=== PATIENT | female | born 1955 | race Caucasian/White ===

== ENCOUNTER → 2017-07-15 | Outpatient (CLI) | payer BC ==
[~2017-07-15] MED LIST: ATV5 PO; CEPH500C PO; DRV100 PO; FLUO10CA48 PO; ZNTT/150 PO
== END | disposition home or self-care (01) ==
LOC: C.PAPS 13:56
PROVIDERS: ATTEND Obstetrics & Gynecology
DX: Z01.419 Encounter for gynecological examination (general) (routine) without abnormal findings (principal)

== ENCOUNTER 2023-09-28 06:42 | Observation (INO) ==
--- NOTE | 2023-08-25 11:23 | PAT Medication Instructions ---
Medication Instructions Date of Service August 25, 2023 Home Medications atorvastatin 20 mg tablet 20 mg PO QAM empagliflozin 25 mg-linagliptin 5 mg tablet (Glyxambi) 1 tab PO QAM pantoprazole 20 mg tablet,delayed release 20 mg PO QAM fluoxetine 10 mg tablet 10 mg PO 4XWK fluoxetine 20 mg tablet 20 mg PO UD acetaminophen 500 mg tablet (Acetaminophen Extra Strength) 500 mg PO Q6H PRN Pain cholecalciferol (vitamin D3) 50 mcg (2,000 unit) capsule (Vitamin D3) 100 mcg PO QAM nystatin 100,000 unit/gram topical ointment 1 applic topical BID PRN ud pioglitazone 15 mg tablet 15 mg PO QAM triamcinolone acetonide 0.1 % topical ointment 1 applic topical BID PRN ud MEDICATION INSTRUCTIONS: Continue as directed triamcinolone acetonide 0.1 % topical ointment 1 applic topical BID PRN ud (do not use after bathing prior to surgery) nystatin 100,000 unit/gram topical ointment 1 applic topical BID PRN ud (do not use after bathing prior to surgery) DO NOT take the morning of surgery cholecalciferol (vitamin D3) 50 mcg (2,000 unit) capsule (Vitamin D3) 100 mcg PO QAM pioglitazone 15 mg tablet 15 mg PO QAM Take morning of surgery With a small sip of water, OTHERWISE NOTHING TO EAT OR DRINK AFTER MIDNIGHT: pantoprazole 20 mg tablet,delayed release 20 mg PO QAM atorvastatin 20 mg tablet 20 mg PO QAM fluoxetine 10 mg tablet 10 mg PO 4XWK fluoxetine 20 mg tablet 20 mg PO UD acetaminophen 500 mg tablet (Acetaminophen Extra Strength) 500 mg PO Q6H PRN Pain (if needed) Take evening before surgery acetaminophen 500 mg tablet (Acetaminophen Extra Strength) 500 mg PO Q6H PRN Pain Other Notes STOP 3 DAYS PRIOR TO SURGERY: empagliflozin 25 mg-linagliptin 5 mg tablet (Glyxambi) 1 tab PO QAM If you have any questions please call us at [phone] or [phone] or [phone] or [phone]
--- NOTE | 2023-09-02 12:38 | Anesthesiology Consultation ---
Date of Service September 02, 2023 Assessment & Plan (1) Encounter for pre-operative examination: - Check BSG AM DOS - Infectious disease screening: Per assessment on 09/02/23: No known infectious disease contacts or current infectious disease symptoms. No noted recent Covid positive test result. - Anesthesia concern: Reviewed neuraxial vs GA with patient. Patient reports post-op headache + Severe PONV after left nephrectomy (2006, [place]). Patient thought that this surgery might have been done with neuraxial anesthesia. Per review of Dr. Ross's operative report from 2006 left nephrectomy at [facility], surgery was done under general anesthesia. Patient states that she did not have similar issues with subsequent shoulder surgery. But did have issue of post-op dyspnea when recovering at home after shoulder surgery that resolved quickly with use of CPAP. - Outpatient joint assessment: Pt currently scheduled for inpatient pathway. If surgeon requests review for outpatient joint pathway, patient is medically acceptable candidate for outpatient joint program from anesthesia standpoint pending surgeon's office assessment that patient is motivated, has good support and completes [facility] Day Joint Program preop requirements. - Patient acceptable risk for surgery pending surgeon-ordered PCP preop evaluation (Dr. Castelan/Lindsay, appt 09/04). Chart Review Chart Review: Patient seen in Pre Admission Testing Teaching & Discussion Pre-Anesthesia Teaching/Discussion Notes: Instructed NPO after midnight before surgery,except medications with 15 cc of water. Medication instructions provided according to the PAT guidelines. History Surgery Operation Date: 09/28/23 11:20 Proposed Procedures p Right Total Knee Arthroplasty - Mak Keith MD Height/Weight Height: 5 ft 3 in Weight: 87.5 kg Allergies Allergy/AdvReac Type Severity Reaction Status Date / Time naproxen Allergy Intermediate Hives Verified 08/25/23 10:37 codeine AdvReac Mild N/V Verified 08/25/23 10:37 ketorolac [From Toradol] AdvReac Nausea Verified 09/02/23 13:06 Medications Home Medications Medication Instructions Recorded Confirmed Last Taken atorvastatin 20 mg tablet 20 mg PO QAM 06/08/22 08/25/23 06/12/22 empagliflozin 25 mg-linagliptin 5 1 tab PO QAM 06/08/22 08/25/23 06/12/22 mg tablet (Glyxambi) pantoprazole 20 mg tablet,delayed 20 mg PO QAM 06/08/22 08/25/23 06/12/22 release fluoxetine 10 mg tablet 10 mg PO 4XWK 08/06/22 08/25/23 Unknown fluoxetine 20 mg tablet 20 mg PO UD 08/06/22 08/25/23 Unknown acetaminophen 500 mg tablet 500 mg PO Q6H PRN Pain 04/11/23 08/25/23 Unknown (Acetaminophen Extra Strength) cholecalciferol (vitamin D3) 50 100 mcg PO QAM 04/11/23 08/25/23 Unknown mcg (2,000 unit) capsule (Vitamin D3) nystatin 100,000 unit/gram topical 1 applic topical BID PRN ud 08/25/23 08/25/23 Unknown ointment pioglitazone 15 mg tablet 15 mg PO QAM 08/25/23 08/25/23 Unknown triamcinolone acetonide 0.1 % 1 applic topical BID PRN ud 08/25/23 08/25/23 Unknown topical ointment Past Medical History Medical History Acid reflux Anxiety Chronic kidney disease Stage 3 Diabetes mellitus, type 2 Hiatal hernia High cholesterol History of malignant neoplasm of kidney s/p left nephrectomy (2006), no chemo/XRT Osteoarthritis Sleep apnea CPAP (compliant) Exercise / Class Metabolic Activity II 4-5 Yardwork/Stairs/Walk up hill (one FS: no CP, no SOB) Past Family History Family History Mother Colorectal cancer Father Family history of stomach cancer Family history of diabetes mellitus Grandmother (Paternal) Family history of diabetes mellitus Denies family history of Ovarian cancer Prostate cancer Breast cancer Past Surgical History Surgical History H/O rotator cuff surgery Right History of appendectomy History of carpal tunnel release of both wrists History of section, low transverse History of colonoscopy History of esophagogastroduodenoscopy (EGD) History of left cataract surgery History of nephrectomy Left (2006) History of right cataract surgery History of tonsillectomy History of tooth extraction History of tubal ligation Hx of colposcopy with cervical biopsy Hx of laparoscopy (diagnostic) Gynecologic with biopsy Nausea and vomiting after administration of anesthetic agent Past Anesthesia History No Family Hx of Anesthesia Complications * Post-op headache + Severe PONV after left nephrectomy (2006, [place])- patient t hought that this surgery might have been done with neuraxial anesthesia. Per review of Dr. Ross's operative report from 2006 left nephrectomy at [facility], surgery was done under general anesthesia * Dyspnea after Right RCR while recovering at home- quickly resolved after use of CPAP History of PONV No Hx of Motion Sickness and History of PONV (Severe with 2007 left nephrectomy- no issues with subsequent surgery/anesthesia (Right shoulder RCR)) Social History Smoking Status: Former smoker tobacco type: cigarettes Do You Dip or Chew Tobacco: No Smoking End Date: Quit 5 years ago Hx Alcohol Use: No Hx Substance Use: No substance use type: does not use Review of Systems Patient denies chest pain, shortness of breath, dyspnea on exertion, fever, chills, cough, wheezing, palpitations. Physical Exam Vital Signs BP 116/72 P 69 TEMP 97.8 SP02 95%RA RESP 16 Physical Full cervical extension range of motion. Full TMJ range of motion. TMD 3 finger breaths Mallampati Score 3 Dentition: upper full denture Lungs: clear throughout to auscultation Cardiac: regular rate and rhythm, no murmurs noted Spine: normal Carotid arteries: negative bruit Extremities: no LE edema Lab Results Anesthesia Preop Results Results Anesthesia Widget: WBC 7.72 K/ul (4.8-10.8) 09/02/23 Hgb 13.7 g/dl (12.0-16.0) 09/02/23 Hct 41.9 % (37.0-47.0) 09/02/23 Plt 180 K/uL (130-400) 09/02/23 Na 137 mmol/L (136-145) 09/02/23 K 3.8 mmol/L (3.5-5.1) 09/02/23 Cl 99 mmol/L (98-107) 09/02/23 CO2 30 mmol/L (21-32) 09/02/23 BUN 15 mg/dl (6-23) 09/02/23 Creat 0.99 mg/dl (0.6-1.2) 09/02/23 Glucose Level 161 mg/dl (70-99(Fasting)) H 09/02/23 PT 11.2 Seconds (9.0-12.0) 09/02/23 PTT 29 Seconds (21-31) 09/02/23 INR 1.0 (0.9-1.1) 09/02/23 HA1c 6.1 % (4.5-5.6) H 09/02/23 Urine Color Yellow 09/02/23 Urine Appearance Clear (Clear) 09/02/23 Urine pH 5.5 (4.5-7.5) 09/02/23 Urine Specific [place] 1.028 (1.000-1.030) 09/02/23 Urine Protein Negative (Negative) 09/02/23 Urine Glucose (UA) 3+ (Negative) H 09/02/23 Urine Ketones Negative (Negative) 09/02/23 Urine Blood Negative (Negative) 09/02/23 Urine Nitrite Negative (Negative) 09/02/23 Urine Bilirubin Negative (Negative) 09/02/23 Urine Urobilinogen Negative (Negative) 09/02/23 Urine Leukocyte Esterase Negative (Negative) 09/02/23 Blood Type O Positive 09/02/23 Antibody Screen NEGATIVE 09/02/23 Testing Electrocardiogram Date: 04/14/23 SR at 63bpm. "Normal ECG" Chest X-Ray Date: 03/27/23 Findings: + NAD
--- NOTE | 2023-09-18 18:54 | History & Physical Report ---
Date of Service September 18, 2023 Assessment & Plan (1) Primary osteoarthritis of right knee: Plan: Treatment options discussed with the patient. They wish to proceed with surgery. Risks, benefits and alternatives to surgery including but not limited to infection, DVT, pain, stiffness, need for revision surgery, damage to blood vessels, damage to nerves, PE, , were discussed with the patient and they wish to proceed. Plan for right total knee arthroplasty scheduled for September [address] Keith. Plan on home health therapy postop. Plan on aspirin 81 mg twice daily for 1 month postop for DVT prophylaxis. All questions answered. Patient follow-up postop. History of Present Illness Chief Complaint: Right knee pain Primary Care Provider: Ezequiel Castelan 68-year-old female with past medical history significant for diabetes, sleep apnea, CKD, history of renal cancer with nephrectomy who presents with ongoing right knee pain. Pain is interfering with her daily activities. She has failed conservative measures and would like to proceed with surgery. Patient denies headaches, sweats, fevers, chills, double vision, blurred vision, cough, sore throat, dysphagia, chest pain, sob, wheezing, n/v/d/c, numbness, tingling, fatigue, urinary symptoms, mood disorders. ROS positive for right knee pain and stiffness. Allergies Allergy/AdvReac Type Severity Reaction Status Date / Time naproxen Allergy Intermediate Hives Verified 08/25/23 10:37 codeine AdvReac Mild N/V Verified 08/25/23 10:37 ketorolac [From Toradol] AdvReac Nausea Verified 09/02/23 13:06 Home Medications Medication Instructions Recorded Confirmed Type atorvastatin 20 mg tablet 20 mg PO QAM 06/08/22 08/25/23 History empagliflozin 25 mg-linagliptin 5 1 tab PO QAM 06/08/22 08/25/23 History mg tablet (Glyxambi) pantoprazole 20 mg tablet,delayed 20 mg PO QAM 06/08/22 08/25/23 History release fluoxetine 10 mg tablet 10 mg PO 4XWK 08/06/22 08/25/23 History fluoxetine 20 mg tablet 20 mg PO UD 08/06/22 08/25/23 History acetaminophen 500 mg tablet 500 mg PO Q6H PRN Pain 04/11/23 08/25/23 History (Acetaminophen Extra Strength) cholecalciferol (vitamin D3) 50 100 mcg PO QAM 04/11/23 08/25/23 History mcg (2,000 unit) capsule (Vitamin D3) nystatin 100,000 unit/gram topical 1 applic topical BID PRN ud 08/25/23 08/25/23 History ointment pioglitazone 15 mg tablet 15 mg PO QAM 08/25/23 08/25/23 History triamcinolone acetonide 0.1 % 1 applic topical BID PRN ud 08/25/23 08/25/23 History topical ointment Past Med/Surg History Medical History Acid reflux Anxiety Chronic kidney disease Stage 3 Diabetes mellitus, type 2 Hiatal hernia High cholesterol History of malignant neoplasm of kidney s/p left nephrectomy (2006), no chemo/XRT Osteoarthritis Sleep apnea CPAP (compliant) Surgical History H/O rotator cuff surgery Right History of appendectomy History of carpal tunnel release of both wrists History of section, low transverse History of colonoscopy History of esophagogastroduodenoscopy (EGD) History of left cataract surgery History of nephrectomy Left (2006) History of right cataract surgery History of tonsillectomy History of tooth extraction History of tubal ligation Hx of colposcopy with cervical biopsy Hx of laparoscopy (diagnostic) Gynecologic with biopsy Nausea and vomiting after administration of anesthetic agent Family History Mother Colorectal cancer Father Family history of stomach cancer Family history of diabetes mellitus Grandmother (Paternal) Family history of diabetes mellitus Denies family history of Ovarian cancer Prostate cancer Breast cancer Social History Smoking Status: Former smoker Tobacco Type: Cigarettes Second Hand Exposure: Yes (in the past); Do You Dip or Chew Tobacco: No; Hx Alcohol Use: No Hx Substance Use: No Preferred Language: Yemeni Communication Ability: Effective Manager Club Required: No Beliefs That Will Affect Care: None Current Living Situation: Family Current Living Situation Comment: and son Feels Safe at Home: Yes Assistive Devices: CPAP, Denture - Upper and Glasses Review of Systems All systems reviewed & are unremarkable except as noted in HPI & below Physical Exam Constitutional: well developed and well nourished; no acute distress Eyes: PERRL, conjunctivae normal, anicteric sclerae ENMT: external ear and nose normal, oropharynx normal Neck: trachea midline, no thyromegaly Respiratory: normal respiratory effort, lungs clear to auscultation Cardiovascular: RRR, no murmur, no edema Musculoskeletal: Right knee: Neutral alignment. Peripatellar tenderness. Stable to valgus varus stress test. Range of motion 0 to 125 degrees. Skin: no rashes, warm and dry Neurologic: patellar DTR's 2+ bilat, sensation intact Psychiatric: A+Ox3, euthymic affect Results & Data Diagnostic Findings Right knee radiographs demonstrate advanced osteoarthritis with [id number]-vawk in the lateral patellar compartment with slight lateral patellar translation. Calcifications extending into the right lateral retinaculum.
[~2023-09-28 06:42] MED LIST changes: -ATV5 PO; -CEPH500C PO; -DRV100 PO; -FLUO10CA48 PO; +ROPIVACAINE 0.5% 5 MG/ML 30 ML VIAL ONE; -ZNTT/150 PO
--- NOTE | 2023-09-28 07:38 | History & Physical Bridge Note ---
Date of Service September 28, 2023 History & Physical Bridge Note I have examined the patient, reviewed the History & Physical and in the interval since the performance of the History & Physical I have noted the following changes of clinical significance: no changes noted
[2023-09-28] MEDS: LR 500ML BOLUS, THEN 15ML/HR IV SCH (08:20)
[2023-09-28] MEDS ORDERED: MIDAZOLAM HCL 1 MG/ML 2ML VIAL ONE ×2 (08:29)
[2023-09-28] MEDS: ACETAMINOPHEN 500 MG TAB PO SCH ×2 (08:50→14:06)
[2023-09-28] MEDS: METOCLOPRAMIDE HCL 10 MG TABLET PO SCH (08:50)
[2023-09-28] MEDS: FAMOTIDINE 20 MG TAB PO SCH (08:51)
[2023-09-28] MEDS: GABAPENTIN 300 MG CAP PO SCH (08:51)
[2023-09-28] MEDS: LR 60ML/HR IV SCH (08:57)
[2023-09-28] MEDS ORDERED: ePHEDrine sulfate 50 MG/ML AMP IV PRN (09:33)
[2023-09-28] MEDS ORDERED: ONDANSETRON INJ 2 MG/ML 2 ML VIAL IV PRN (09:33)
[2023-09-28] MEDS ORDERED: ATROPINE SULFATE 0.1 MG/ML 10ML SYR IV PRN (09:33)
[2023-09-28] MEDS ORDERED: PROMETHAZINE HCL 6.25 MG in SODIUM CHLORIDE 0.9% 50 ML IV PRN (09:33)
[2023-09-28] MEDS ORDERED: fentaNYL citrate PF 100 MCG/2 ML VIAL IV PRN (09:33)
[2023-09-28] MEDS: TRANEXAMIC ACID 1,000 MG **IV Pre-op IV SCH (09:34)
[2023-09-28] MEDS: ceFAZolin 2000MG 2,000 MG/15 ML SYR IV SCH ×2 (10:05→17:39)
[2023-09-28] MEDS ORDERED: LIDOCAINE 2% 2 ML VIAL/AMP(20MG/ML) INFIL ONE (10:06)
[2023-09-28] MEDS ORDERED: PROPOFOL IV EMULSION 10 MG/ML 20 ML VIAL IV ONE (10:06)
[2023-09-28] MEDS: ROPIVACAINE 0.5% HCL/PF 246 MG, EPINEPHrine 30MG/30ML (OR USE) 0.5 MG in SODIUM CHLORID... INFIL SCH (10:19)
[2023-09-28] MEDS ORDERED: PHENYLEPHRINE HCL 10 MG/ML VIAL ONE (10:29)
--- NOTE | 2023-09-28 11:40 | Operative Report ---
Post Operative Report Pre & Post Diagnosis Operation Date: 09/28/23 09:10 Pre-Op Diagnosis: Right Knee Osteoarthritis Post-Op Diagnosis: Right Knee Osteoarthritis, patellofemoral malalignment, chondrocalcinosis possible calcium pyrophosphate disease I identified the patient and participated in the time-out.: Yes Procedure Operation Date: 09/28/23 09:10 Actual Procedures p Right Total Knee Arthroplasty(Right) lateral release, jerica and Acticoat superficial wound VAC application- Mak Keith MD Surgeon Mak Keith MD Clinical Nurse Reviewer Tye ORTEGA Estimated Blood Loss 5 Findings Consistent with Post-Op Diagnosis Specimens Bone cuts Drains 2 Hemovac Anesthesia Type MAC Spinal Regional Complications none Disposition Disposition: Recovery Room Indications 68-year-old female with chronic progressive osteoarthritis in her right knee failed conservative management. Radiographs demonstrate that she has some mild valgus alignment to her knee with [id number] in the patellofemoral joint with some patellofemoral malalignment. Some lateral fragmentation of the patella. Description of Procedure The patient was taken to the operating room and anesthetized under spinal MAC regional block. Patient was placed supine on the the operating table. A pneumatic tourniquet was placed about the right upper thigh. The knee exam demonstrated zycw-[id number] crepitation patellofemoral joint with moderately large effusion.. The involved leg was elevated exsanguinated with Esmarch bandage and the pneumatic tourniquet was raised to 300 millimeters mercury. A longitudinal incision was made across the anterior knee. Skin flaps were elevated. An incision was made into the medial retinaculum and extended up into the mid third of the quadriceps tendon and extended down to the tibial tubercle. Intra- articular findings demonstrated severe epkx-[id number] patellofemoral joint with bone loss of the patella and lateral fragmentation with eburnation and ridging. Chondrocalcinosis throughout the knee with calcifications throughout the knee joint and synovium. The knee was exposed by excising cruciate ligaments and menisci. The infrapatellar fat pad was resected. The fat pad over the anterior femur at the upper aspect of the articular surface was resected for placement of the component in that area. The Eugene [employer] Nephew journey 2.0 total knee arthroplasty system was utilized for the procedure. The custom femoral cutting guide was pinned in position. The distal femoral cut was made. The size 4, 5 in 1 cutting block was placed. The anterior posterior and chamfer cuts were made. The knee was extended and attention was first taken to shelling out the 2 large loose bone fragments at the lateral aspect of the patella. A subperiosteal peel type lateral release was performed around these fragments and they were resected. A free hand cut technique was performed to the patella. The patella width was measured and was only 10 mm of bone laterally but thicker bone medially. I made a cut with the oscillating saw to have a 14 mm patella bone where the implant was placed. The excess lateral facet was beveled off to prevent any impingement. 3 drill holes are made for the patella component pegs. The tibia was then subluxed. The custom tibial cutting block was pinned in position and the proximal tibial cut was made with the oscillating saw. Flexion and extension gaps were balanced. No releases were required. The size 2 tibial trial was externally rotated in line with the tibial tubercle and pinned in position. The punch for the stem was used. The femoral trial was inserted and centered the notch cutting devices were used and the collet was placed. Tibial trials were used for the insert. The size 12 trial gave balanced ligaments through full range of motion. Patella tracking was assessed with range of motion. The patella tracked with some lateral patellar tilt but central tracking so we did do a lateral release leaving the synovium intact and the geniculate vessels were maintained intact as well. The trials were removed. The Orthomix anesthetic cocktail was injected per protocol. The cut bone surfaces and soft tissue were copiously irrigated with pulsatile lavage saline solution. The final components were cemented with Refobacin cement. The final components were Eugene [employer] Nephew journey 2.0 posterior stabilized size 4 right femoral component, size 2 right tibia with a 12 mm tibial polyethylene posterior stabilized insert and the 29 mm symmetrical polyethylene patella. Xperience irrigation was placed over metal tray prior to polyethyle insertion. After the cement cured, the knee was then copiously irrigated with pulsatile lavage Xperience solution. 2 drains were brought out laterally connected to Hemovac. The quadriceps tendon and medial retinaculum were closed with interrupted [id number] #1 Vicryl sutures. The knee was taken through full range of motion and repair was secure. Knee range of motion was 0 through 135 degrees. the subcutaneous tissues were closed with 2-0 Vicryl sutures. The skin was closed with 3-0 strata fix and Prineo glue system. A p ico and Acticoat Flex superficial wound VAC was applied. The tourniquet was let down and the patient had good capillary refill to the extremity. The patient tolerated the procedure well. My physician field assistant Tye ORTEGA participated as welder first class and was integral part in all aspects of the procedure including prepping, draping, leg positioning, soft tissue retraction, instrument management and assisted in the closure , wound VAC application and will participate in postoperative care the patient. I attest to the content of the Intraoperative Record and any orders documented therein. Any exceptions are noted below.
--- NOTE | 2023-09-28 13:02 | XRay Report ---
XR knee RT 1 or 2V routine CLINICAL HISTORY: Surgical Post Op TECHNIQUE: 2 views of the right knee were obtained. Comparison: None available at the time of this dictation. FINDINGS: Patient is status post total knee arthroplasty with expected postsurgical changes including soft tiss ue swelling and subcutaneous emphysema. No periarticular lucency or hardware fracture is seen. IMPRESSION: Expected postoperative appearance status post placement of total knee arthroplasty. ACT 112: Negative or not required by law. Electronically signed by: Jerry Linder M.D. 09/28/2023 1:00 PM
--- NOTE | 2023-09-28 13:10 | Anesthesiology Progress Note ---
Date of Service September 28, 2023 Anesthesia Post Procedure Vital Signs Vital Signs: Temp Pulse Resp BP Pulse Ox O2 Del Method O2 Flow Rate 09/28/23 12:50 56 L 14 106/75 93 Room Air 09/28/23 12:40 36.3 C L 57 L 14 113/63 94 Room Air 09/28/23 12:30 55 L 14 116/71 95 Room Air 09/28/23 12:20 54 L 13 114/59 L 99 Oxymask 3 09/28/23 12:10 36.3 C L 72 14 126/63 97 Oxymask 6 09/28/23 08:05 36.6 C 72 20 140/78 98 Room Air Pain Intensity Right Knee: Pain Intensity: 0 Transfer of Care Handoff Completed per policy Notes Mental Status: alert / awake / arousable Patient Amnestic to Procedure: Yes Nausea / Vomiting: adequately controlled Pain: adequately controlled Airway Patency, RR, SpO2: stable & adequate BP & HR: stable & adequate Hydration State: stable & adequate Neuraxial Anesthesia: was administered and sensory block is resolving Anesthetic Complications: no major complications apparent
[2023-09-28] MEDS ORDERED: diphenhydrAMINE 50 MG/ML VIAL IV PRN (13:22)
[2023-09-28] MEDS ORDERED: NALOXONE HCL 0.4 MG/1 ML VIAL/CARP IV PRN (13:22)
[2023-09-28] MEDS ORDERED: HYDROmorphone INJ 0.5 MG/0.5 ML SYR IV PRN (13:22)
[2023-09-28] MEDS ORDERED: MAGNESIUM HYDROXIDE SUSP 30 ML UDC PO PRN (13:22)
[2023-09-28] MEDS ORDERED: bisacodyL 10 MG SUPP PR PRN (13:22)
[2023-09-28] MEDS ORDERED: PHARMACY GLYCEMIC MGMT CONSULT PRN (13:38)
[2023-09-28] MEDS: TRANEXAMIC ACID 1,000 MG **IV Intra-op IV SCH (13:39)
[2023-09-28] MEDS: ORTHO JOINT ANESTHETIC ONE (13:39)
[2023-09-28] MEDS: ALLERGY Noted to ORDERED Medication SCH (13:41)
[2023-09-28] MEDS: SODIUM CHLORIDE 0.9% 1,000 ML IV SCH (14:02)
[2023-09-28] MEDS: FLUoxetine HCL 20 MG CAP PO SCH (14:06)
[2023-09-28] MEDS ORDERED: CARBOHYDRATES FOR HYPOGLYCEMIA PO PRN (14:30)
[2023-09-28] MEDS ORDERED: DEXTROSE 50% 50 ML SYRINGE IV PRN (14:30)
[2023-09-28] MEDS ORDERED: GLUCAGON FOR INJ 1 MG VIAL IM PRN (14:30)
[2023-09-28] MEDS ORDERED: GLUCOSE 40% GEL 15 GM TUBE PO PRN (14:30)
[2023-09-28] MEDS ORDERED: GLUCOSE 10 TAB/TUBE PO PRN (14:30)
--- NOTE | 2023-09-28 14:51 | Pharmacy Report ---
Pharmacy Glycemic Short Note 2 - Date of Service September 28, 2023 - Glycemic Short BSG Results (Last 24 hours): 09/28/23 09/28/23 07:49 12:13 POC Glucose 127 H 120 H OUTPATIENT ANTIDIABETIC REGIMEN: * pioglitazone 15mg PO QAM * Glyxambi (empaglifozin 25mg/ linagliptin 5mg) PO QAM * HbA1c 6.1% (09/02/23) ASSESSMENT: * Maddie is a 68 YOF status post total knee arthroplasty with a history of T2DM. Pharmacy has been consulted for glycemic management while inpatient. * Pre-operative BSG within goal range, it does not appear she received any steroids preoperatively, she is on perioperative Ancef. Will hold basal at this time and initiate Novolog at a weight based stress of 2 (based on AdjBW) PLAN FOR INPATIENT GLYCEMIC CONTROL: * Hold outpatient oral diabetes medications * Basal insulin * hold * Bolus insulin * NovoLog per scale ACHS or Q6hrs while NPO * Goal Range: Low 120 mg/dL - High 160 mg/dL * Correction Factor: 30 mg/dL/unit * Nutritional / Prandial insulin per carb ratio of 1 unit per 11 grams CHO consumed
[2023-09-28] MEDS: INSULIN ASPART PER UNIT CHARGE SC SCH (17:07)
[2023-09-28] MEDS: oxyCODONE HCL IR 5 MG TAB (IMMEDIATE RELEASE) PO PRN (20:04)
[2023-09-28] MEDS: DOCUSATE SODIUM 100 MG CAP PO SCH (20:06)
[2023-09-28] MEDS: SENNA 8.6 MG TAB PO SCH (20:06)
[2023-09-28] MEDS: ASPIRIN 81 MG ECTAB PO SCH (20:10)
[2023-09-29 06:38] LABS: Hemoglobin 11.8 g/dl (12.0-16.0); Mean Corpuscular Hemoglobin 29.1 pg (25.0-34.0); Mean Corpuscular Hgb Conc 31.9 g/dL (32.0-36.0); Mean Corpuscular Volume 91.1 fL (80.0-100.0); Mean Platelet Volume 10.7 fL (9.4-12.4); Platelet Count 149 K/uL (130-400); RDW Coefficient of Variation 14.1 % (11.5-14.5); RDW Standard Deviation 47.2 fL (36.4-46.3); Red Blood Count 4.06 M/uL (4.20-5.40); White Blood Count 9.35 K/ul (4.8-10.8)
[2023-09-29 06:59] LABS: BUN Creatinine Ratio 13.9 (10-20); Calcium 8.7 mg/dl (8.6-10.3); Creatinine Clr Calc Pharmacy 64.1 ml/min; Est GFR (African American) 67.2 ml/min; Potassium 4.2 mmol/L (3.5-5.1)
--- NOTE | 2023-09-29 07:41 | Orthopedic Progress Note ---
Date of Service September 29, 2023 Assessment & Plan (1) Primary osteoarthritis of right knee: Plan: Postop day 1 right knee replacement after total knee arthroplasty. Condition stable. Patient needs to see if she can get through physical therapy and see what her pain level is prior to considering discharge. May need to stay another day. Patient wants to do home health home PT. If she can get that arranged and pain manageable she can be discharged home later today. Admission and Anticipated Discharge Date Admission Date: September 28, 2023 Subjective Having moderately severe pain but getting relief with pain medicine. Review of Systems Review of Systems: noncontributory Physical Exam Physical Exam: Circulation intact motor function intact weak straight leg raise with some pain. No extensor lag. Results & Data Vital Signs (Past 12 Hours) Vital Signs Temp Pulse Resp BP Pulse Ox O2 Del Method 09/29/23 03:54 36.6 C 61 18 141/84 H 98 CPAP 09/28/23 22:51 36.5 C 57 L 18 145/79 H 98 CPAP Diagnostic Findings Radiographs demonstrate well aligned knee replacement.
[2023-09-29] MEDS: CHOLECALCIFEROL 25 MCG (1000 UNITS) TAB PO SCH (08:06)
[2023-09-29] MEDS: PANTOprazole 40 MG TAB PO SCH (08:06)
[2023-09-29] MEDS: ATORVASTATIN 20 MG TAB PO SCH (08:06)
[2023-09-29] MEDS: FLUoxetine HCL 10 MG CAP PO SCH (08:06)
[2023-09-29] MEDS: MULTIVITAMIN TAB PO SCH (08:06)
[2023-09-29] MEDS: INSULIN ASPART PER UNIT CHARGE SC SCH (08:22)
[2023-09-29] MEDS ORDERED: PIOGLITAZONE HCL 15 MG TAB PO SCH (09:00)
--- NOTE | 2023-09-29 13:48 | Hospitalist Consultation ---
Date of Consultation September 29, 2023 Assessment & Plan (1) Primary osteoarthritis of right knee: Elective right total knee replacement on 09/[address] Keith Pain management, activity level, medication reconciliation, and discharge planning per primary team (2) Type 2 diabetes mellitus: Continue home meds Plan Patient is ready for discharge from medical perspective. History of Present Illness Reason for Consultation: Postoperative medical management Requesting Physician: Mak Keith MD Attending Physician: Mak Keith MD History of Present Illness Patient had elective right total knee replacement due to right knee osteoarthritis on 09/[address] Keith. Patient seen and evaluated at bedside. She reports some postoperative pain, but states it is well-controlled with current pain management. She denies chest pain, shortness of breath, lightheadedness, dizziness. She has no complaints at this time. She is ready for discharge from medical perspective. Allergies Allergy/AdvReac Type Severity Reaction Status Date / Time naproxen Allergy Intermediate Hives Verified 09/28/23 07:54 codeine AdvReac Mild N/V Verified 09/28/23 07:54 ketorolac [From Toradol] AdvReac Nausea Verified 09/28/23 07:54 Home Medications Medication Instructions Recorded Confirmed Type atorvastatin 20 mg tablet 20 mg PO QAM 06/08/22 09/28/23 History empagliflozin 25 mg-linagliptin 5 1 tab PO QAM 06/08/22 09/28/23 History mg tablet (Glyxambi) pantoprazole 20 mg tablet,delayed 20 mg PO QAM 06/08/22 09/28/23 History release fluoxetine 10 mg tablet 10 mg PO 4XWK 08/06/22 09/28/23 History fluoxetine 20 mg tablet 20 mg PO UD 08/06/22 09/28/23 History cholecalciferol (vitamin D3) 50 100 mcg PO QAM 04/11/23 09/28/23 History mcg (2,000 unit) capsule (Vitamin D3) nystatin 100,000 unit/gram topical 1 applic topical BID PRN ud 08/25/23 09/28/23 History ointment pioglitazone 15 mg tablet (Actos) 15 mg PO QAM 08/25/23 09/28/23 History triamcinolone acetonide 0.1 % 1 applic topical BID PRN ud 08/25/23 09/28/23 History topical ointment acetaminophen 500 mg tablet 1,000 mg (2 x 500 mg) PO Q8 14 09/28/23 Rx (Tylenol Extra Strength) days #84 tabs aspirin 81 mg tablet,delayed 81 mg PO BID 30 days #60 tabs 09/28/23 Rx release cefadroxil 500 mg capsule 500 mg PO BID #14 caps 09/28/23 Rx oxycodone 5 mg tablet 5 mg PO Q4H PRN pain #30 tabs 09/28/23 Rx polyethylene glycol 3350 17 gram 17 g PO DAILY PRN constipation #5 09/28/23 Rx oral powder packet (Miralax) ea Patient History Medical History Acid reflux Anxiety Chronic kidney disease Stage 3 Diabetes mellitus, type 2 Hiatal hernia High cholesterol History of malignant neoplasm of kidney s/p left nephrectomy (2006), no chemo/XRT Osteoarthritis Sleep apnea CPAP (compliant) Surgical History H/O rotator cuff surgery Right History of appendectomy History of carpal tunnel release of both wrists History of section, low transverse History of colonoscopy History of esophagogastroduodenoscopy (EGD) History of left cataract surgery History of nephrectomy Left (2006) History of right cataract surgery History of tonsillectomy History of tooth extraction History of tubal ligation Hx of colposcopy with cervical biopsy Hx of laparoscopy (diagnostic) Gynecologic with biopsy Nausea and vomiting after administration of anesthetic agent Family History Mother Colorectal cancer Father Family history of stomach cancer Family history of diabetes mellitus Grandmother (Paternal) Family history of diabetes mellitus Denies family history of Ovarian cancer Prostate cancer Breast cancer Social History Smoking Status: Former smoker Tobacco Type: Cigarettes Smoking End Date: Quit 5 years ago; Second Hand Exposure: Yes (in the past); Do You Dip or Chew Tobacco: No; Tobacco Cessation Education Requested by Patient: No Hx Alcohol Use: No Hx Substance Use: No Preferred Language: Thai Communication Ability: Effective Body Straightener Required: No Beliefs That Will Affect Care: None Current Living Situation: Family Current Living Situation Comment: and son Feels Safe at Home: Yes Safety Concerns: Feels Safe At This Time Assistive Devices: CPAP and Walker Assistive Devices Comment: reading glasses Physical Exam Physical Exam: General: No acute distress, nondiaphoretic, well-developed, well-nourished. Skin: The skin was without rashes, erythema, edema, or bruising. Cardiac: Regular rate and rhythm without murmurs gallops or rubs. Pulm: Clear to auscultation bilaterally without wheezes, rales or rhonchi. No retractions or accessory muscle use. Abdominal: Positive bowel sounds x 4. Soft, nontender, without masses or organomegaly. No guarding or rebound tenderness. Neuro: A&O x3. No focal neurological deficits. Extremities: Right knee dressing dry, intact. Drain in place. Adequate perfusion to right lower extremity. Results & Data Results & Data Vital Signs (Past 12 Hours) Vital Signs Temp Pulse Resp BP Pulse Ox O2 Del Method 09/29/23 07:41 36.4 C L 65 16 133/77 97 Room Air 09/29/23 03:54 36.6 C 61 18 141/84 H 98 CPAP Laboratory Results Reviewed CBC Reviewed chemistries PG Care Time/CCT Total # of Minutes Spent Total Time Spent with Patient: Total time spent is greater than 50% in coordination of care (as documented) at patient's floor/unit and/or counseling patient: Coding Level of Care Code 07522 IN/OBS CONSULT LVL 2,35M Diagnoses Primary osteoarthritis of right knee M17.11 Type 2 diabetes mellitus E11.9
[2023-09-29] MEDS: ONDANSETRON INJ 2 MG/ML 2 ML VIAL IV PRN (14:09)
== END 2023-09-29 15:15 | disposition home health service (06) ==
LOC: ASU 06:42 → 3E 06:42
DX: N18.30 Chronic kidney disease, stage 3 unspecified; M22.2X1 Patellofemoral disorders, right knee; Z87.891 Personal history of nicotine dependence; M11.261 Other chondrocalcinosis, right knee; Z88.8 Allergy status to other drugs, medicaments and biological substances; Z79.84 Long term (current) use of oral hypoglycemic drugs; K21.9 Gastro-esophageal reflux disease without esophagitis; E11.22 Type 2 diabetes mellitus with diabetic chronic kidney disease; M25.761 Osteophyte, right knee; Z88.6 Allergy status to analgesic agent; Z79.82 Long term (current) use of aspirin; Z79.899 Other long term (current) drug therapy; G47.30 Sleep apnea, unspecified; M17.11 Unilateral primary osteoarthritis, right knee; E78.5 Hyperlipidemia, unspecified

== ENCOUNTER 2023-11-11 00:24 | Inpatient (IN) ==
[2023-11-11] MEDS: ONDANSETRON INJ 2 MG/ML 2 ML VIAL ONE (00:41)
[2023-11-11] MEDS: ceFAZolin 1000MG 1,000 MG/7.5 ML SYR IV STA (00:50)
[2023-11-11 00:52] LABS: Basophils # (auto) 0.04 K/uL (0.00-0.20); Basophils % (auto) 0.5 %; Eosinophils # (auto) 0.21 K/uL (0.00-0.50); Eosinophils % (auto) 2.5 %; Hematocrit (blood only) 37.7 % (37.0-47.0); Hemoglobin 12.4 g/dl (12.0-16.0); Immature Granulocytes # (auto) 0.03 K/uL (0.01-0.20); Immature Granulocytes % (auto) 0.4 %; Lymphocytes # (auto) 2.07 K/uL (1.20-3.40); Lymphocytes % (auto) 24.6 %; Mean Corpuscular Hgb Conc 32.9 g/dL (32.0-36.0); Mean Corpuscular Volume 91.1 fL (80.0-100.0); Mean Platelet Volume 10.1 fL (9.4-12.4); Monocytes # (auto) 0.52 K/uL (0.11-0.59); Monocytes % (auto) 6.2 %; Neutrophils # (auto) 5.54 K/uL (1.40-6.50); Neutrophils % (auto) 65.8 %; Platelet Count 190 K/uL (130-400); RDW Standard Deviation 46.2 fL (36.4-46.3); Red Blood Count 4.14 M/uL (4.20-5.40); White Blood Count 8.41 K/ul (4.8-10.8)
[2023-11-11 01:02] LABS: Albumin Globulin Ratio 1.4 (0.9-2); Albumin Level 4.1 gm/dl (3.4-5.0); BUN Creatinine Ratio 16.3 (10-20); Bilirubin,Total 0.6 mg/dl (0.2-1.0); Calcium 9.5 mg/dl (8.6-10.3); Creatinine Clr Calc Pharmacy 65.2 ml/min; Est GFR (African American) 69.7 ml/min; Est GFR (Non-African American) 60.1 ml/min; Potassium 3.3 mmol/L (3.5-5.1); Total Protein 7.1 gm/dl (6.0-8.3)
[2023-11-11] MEDS: METOCLOPRAMIDE HCL INJ 5 MG/ML 2 ML VIAL IV ONE (01:03)
[2023-11-11] MEDS: DIPHTHER/TETAN/PERTUS Vaccine (Tdap, Adol/Adult) 0.5mL IM ONE (01:06)
[2023-11-11] MEDS: HYDROmorphone INJ 0.5 MG/0.5 ML SYR IV STA (01:17)
--- NOTE | 2023-11-11 01:27 | Emergency Department Note ---
Impression & Plan Surgical wound dehiscence, Fall Admit to the [facility] ED Provider Note NAME: CHERELLE RAMSAY AGE: 68 SEX: Female INFORMANT: Patient, EMS, and her ED PROVIDER(S): Shannon Miguel DO CHIEF COMPLAINT: Right knee pain PLAN: Disposition: Admit to the [facility] MEDICAL DECISION MAKING: This is a 68-year-old female patient presents to the emergency department with dehiscence of her right total knee replacement surgical incision. Patient underwent total knee replacement with Dr. Cristobal approximately 6 weeks ago. She had a normal postoperative course and has been doing well with physical therapy. The wound on the knee had completely healed up. Tonight, unfortunately, the patient felt as if the right lower extremity gave out while she was walking to her bed and the patient fell backwards onto her buttocks. She states that she landed softly and did not injure herself but looked down and noted that the right surgical incision had opened up completely. She denies striking the knee or landing on the knee. EMS was called and she was transported here. Patient was given a tetanus booster. Laboratory studies revealed a glucose of 154. There was no leukocytosis or anemia noted. Potassium was slightly low at 3.3. Patient was kept n.p.o. and given a dose of IV Dilaudid for pain. The wound was thoroughly inspected and packed with saline soaked gauze. X-ray showed no fractures or loosening of the hardware. The case was discussed with the orthopedic surgeon on-call. He recommended admission to the medical service and consult orthopedics I discussed the case with the [facility] and they will evaluate for further inpatient care. Care/management discussed with: Case management, Dr. Zepeda from orthopedics, [facility] Triage Nursing notes: reviewed and agree with them. Vital Signs: reviewed and unremarkable Additional History obtained from: EMS and the patient's Chronic Medical/Social Conditions affecting care: Patient is a type II diabetic Prior medical records reviewed: I did review the operative notes for this patient's total knee replacement Diagnostics, independently interpreted by me: Imaging studies: Right knee: No obvious fracture or loosening of the hardware. Obvious air within the joint space; gaping wound HPI: 68 year old Female arrives for evaluation of wound dehiscence. Tonight the patient was walking to her bed when she felt as if the right lower extremity gave out and she fell to the floor on her back. She looked down and noted that the surgical wound had completely opened up. PAST MEDICAL HISTORY: See Below, PAST SURGICAL HISTORY: See Below, SOCIAL HISTORY: See Below, HOME MEDICATIONS: See list ALLERGIES: See list VITALS: See Below PHYSICAL EXAMINATION: HEENT: Head - normocephalic and atraumatic. Pupils are equal, round, and reactive to light. Extraocular eye muscles are intact, and sclera are anicteric. Nose - moist nasal mucosa without discharge. Mouth - moist buccal mucosa. Oropharynx is nonerythematous and there is no tonsillar exudate or edema noted. Neck: Supple; no pain to palpation over the posterior cervical spine. Heart: Regular rate and rhythm. There is a normal S1 and S2 with no murmurs, clicks, or gallops appreciated. Lungs: Clear to auscultation bilaterally with no wheezes, rales, or rhonchi. Abdomen: Soft, completely nontender, nondistended, with good bowel sounds. There are no palpable pulsatile masses or hepatosplenomegaly. There is no guarding, rigidity, or rebound noted. Extremities: Complete dehiscence of the total knee replacement surgical incision of the right knee. Joint space was exposed as well as the hardware. There was a small amount of bleeding. Skin: warm and dry with good turgor and no rashes. Emergency department treatment: IV Dilaudid, IV Zofran, IV Reglan, IV Ancef, IM Adacel Emergency department course: The patient was evaluated in room A-1. A complete history and physical was performed. Laboratory studies were drawn as above. Patient was medicated with IV Zofran for persistent nausea. The wound on the right knee was explored and packed with saline soaked gauze. A portable x-ray was obtained of the right knee. She was given a dose of IV Dilaudid for pain. Patient's nausea persisted and she went on to receive a dose of IV Reglan. Patient states her tetanus is not up-to-date so therefore she was given a dose of IM Adacel. The case was discussed with Dr. Zepeda fromorthopedic surgery and he recommended talking to internal medicine and consulting orthopedics. The patient was given a dose of IV Ancef. She was comfortable at this time. Past Med/Surg History Medical History Acid reflux Anxiety Chronic kidney disease Stage 3 Diabetes mellitus, type 2 Hiatal hernia High cholesterol History of malignant neoplasm of kidney s/p left nephrectomy (2006), no chemo/XRT Osteoarthritis Sleep apnea CPAP (compliant) Surgical History H/O rotator cuff surgery Right History of appendectomy History of carpal tunnel release of both wrists History of section, low transverse History of colonoscopy History of esophagogastroduodenoscopy (EGD) History of left cataract surgery History of nephrectomy Left (2006) History of right cataract surgery History of tonsillectomy History of tooth extraction History of tubal ligation Hx of colposcopy with cervical biopsy Hx of laparoscopy (diagnostic) Gynecologic with biopsy Nausea and vomiting after administration of anesthetic agent Family History Mother Colorectal cancer Father Family history of stomach cancer Family history of diabetes mellitus Grandmother (Paternal) Family history of diabetes mellitus Denies family history of Ovarian cancer Prostate cancer Breast cancer Social History Smoking Status: Former smoker Tobacco Type: Cigarettes Second Hand Exposure: No; Do You Dip or Chew Tobacco: No; Tobacco Cessation Education Requested by Patient: No Hx Alcohol Use: Yes Alcohol type: beer Hx Substance Use: No Preferred Language: Hebrew Communication Ability: Effective Auction Clerk Required: No Beliefs That Will Affect Care: [employer] Current Living Situation: Spouse Current Living Situation Comment: and son Other Information That Helps Us Care for You: No Feels Safe at Home: Yes Safety Concerns: Feels Safe At This Time Assistive Devices: None Allergies Allergies Allergy/AdvReac Type Severity Reaction Status Date / Time naproxen Allergy Intermediate Hives Verified 09/28/23 07:54 codeine AdvReac Mild N/V Verified 09/28/23 07:54 ketorolac [From Toradol] AdvReac Nausea Verified 09/28/23 07:54 Home Meds Home Medications Medication Instructions Recorded Confirmed atorvastatin 20 mg tablet 20 mg PO HS 06/08/22 11/11/23 empagliflozin 25 mg-linagliptin 5 1 tab PO QAM 06/08/22 11/11/23 mg tablet (Glyxambi) pantoprazole 20 mg tablet,delayed 20 mg PO QAM 06/08/22 11/11/23 release fluoxetine 10 mg tablet 10 mg PO QAM 08/06/22 11/11/23 fluoxetine 20 mg tablet 20 mg PO QAM 08/06/22 11/11/23 pioglitazone 15 mg tablet (Actos) 15 mg PO QAM 08/25/23 11/11/23 gabapentin 100 mg capsule 100 mg PO UD 11/11/23 11/11/23 tramadol 50 mg tablet 50 mg PO Q6 PRN Pain 11/11/23 11/11/23 Previous Rx's Medication Instructions Recorded polyethylene glycol 3350 17 gram 17 g PO DAILY PRN constipation #5 09/28/23 oral powder packet (Miralax) ea Results & Data (ED) Vital Signs Vital Signs - 24 hr 11/11/23 00:27 11/11/23 00:28 11/11/23 00:30 Temperature 36.4 C L Temperature Source Oral Pulse Rate 82 97 H 82 Pulse Rate from SpO2 Sensor 82 Respiratory Rate 16 Respiratory Effort / Characteristics Non-Labored Spontaneous Respiratory Depth Normal Respiratory Pattern Regular Blood Pressure 141/82 H 141/82 H Blood Pressure Mean 101 101 Blood Pressure Position Lying Pulse Oximetry 97 97 Oxygen Delivery Method Room Air Room Air Oxygen Flow Rate Sepsis Recent Fever Within 48 Hours No Sepsis New/Unexplained Change in Mental Status N/A Sepsis Action Taken by Nursing No Action Required 11/11/23 01:30 11/11/23 01:49 11/11/23 01:50 Temperature Temperature Source Pulse Rate 90 Pulse Rate from SpO2 Sensor 88 Respiratory Rate 14 Respiratory Effort / Characteristics Respiratory Depth Respiratory Pattern Blood Pressure 116/70 Blood Pressure Mean 85 Blood Pressure Position Pulse Oximetry 90 88 L 97 Oxygen Delivery Method Room Air Room Air Nasal Cannula Oxygen Flow Rate 2 Sepsis Recent Fever Within 48 Hours Sepsis New/Unexplained Change in Mental Status Sepsis Action Taken by Nursing 11/11/23 02:00 11/11/23 03:00 Temperature Temperature Source Pulse Rate 83 72 Pulse Rate from SpO2 Sensor 82 71 Respiratory Rate 16 16 Respiratory Effort / Characteristics Respiratory Depth Respiratory Pattern Blood Pressure 131/69 120/72 Blood Pressure Mean 89 88 Blood Pressure Position Pulse Oximetry 97 99 Oxygen Delivery Method Nasal Cannula Nasal Cannula Oxygen Flow Rate 2 2 Sepsis Recent Fever Within 48 Hours Sepsis New/Unexplained Change in Mental Status Sepsis Action Taken by Nursing Laboratory Data 11/11/23 00:33 11/11/23 00:33 Lab Results 11/11/23 Range/Units 00:33 WBC 8.41 (4.8-10.8) K/ul RBC 4.14 L (4.20-5.40) M/uL Hgb 12.4 (12.0-16.0) g/dl Hct 37.7 (37.0-47.0) % MCV 91.1 (80.0-100.0) fL MCH 30.0 (25.0-34.0) pg MCHC 32.9 (32.0-36.0) g/dL RDW Std Deviation 46.2 (36.4-46.3) fL RDW Coeff of Bettina 14.0 (11.5-14.5) % Plt Count 190 (130-400) K/uL MPV 10.1 (9.4-12.4) fL Immature Gran % (Auto) 0.4 % Neut % (Auto) 65.8 % Lymph % (Auto) 24.6 % Vernon % (Auto) 6.2 % Eos % (Auto) 2.5 % Baso % (Auto) 0.5 % Neut # (Auto) 5.54 (1.40-6.50) K/uL Lymph # (Auto) 2.07 (1.20-3.40) K/uL Vernon # (Auto) 0.52 (0.11-0.59) K/uL Eos # (Auto) 0.21 (0.00-0.50) K/uL Baso # (Auto) 0.04 (0.00-0.20) K/uL Immature Gran # (Auto) 0.03 (0.01-0.20) K/uL Sodium 139 (136-145) mmol/L Potassium 3.3 L (3.5-5.1) mmol/L Chloride 103 (98-107) mmol/L Carbon Dioxide 26 (21-32) mmol/L Anion Gap 10 (3-11) BUN 16 (6-23) mg/dl Creatinine 0.98 (0.6-1.2) mg/dl Est Cr Clr Drug Dosing 65.2 ml/min Est GFR ( Amer) 69.7 ml/min Est GFR (Non-Af Amer) 60.1 ml/min BUN/Creatinine Ratio 16.3 (10-20) Glucose 154 H (70-99(Fasting)) mg/dl Calcium 9.5 (8.6-10.3) mg/dl Total Bilirubin 0.6 (0.2-1.0) mg/dl AST 12 L (13-39) U/L ALT 9 (7-52) U/L Alkaline Phosphatase 77 (34-104) U/L Total Protein 7.1 (6.0-8.3) gm/dl Albumin 4.1 (3.4-5.0) gm/dl Globulin 3.0 (2.5-4.0) gm/dl Albumin/Globulin Ratio 1.4 (0.9-2) Administered Medications Sodium Chloride (Nss) 1,000 mls @ 125 mls/hr IV .Q8H ELÍAS Stop: 12/11/23 05:21 Last Admin: 11/11/23 05:36 Dose: 125 mls/hr Documented By: MAE Discontinued Medications Diphtheria/Pertussis/Tetanus Vacc (Diphther/Tetan/Pertus Vaccine (Tdap, Adol/Adult) 0.5ml) 0.5 ml IM .ONCE ONE Stop: 11/11/23 01:00 Last Admin: 11/11/23 01:06 Dose: 0.5 ml Documented By: Hydromorphone HCl (Hydromorphone Inj 0.5 Mg/0.5 Ml Syr) 0.5 mg IV NOW STA Stop: 11/11/23 01:15 Last Admin: 11/11/23 01:17 Dose: 0.5 mg Documented By: Cefazolin Sodium (Ancef 1000mg) 1,000 mg in 7.5 mls @ 2.5 mls/min IV NOW STA Stop: 11/11/23 00:36 Last Admin: 11/11/23 00:50 Dose: 2.5 mls/min Documented By: Metoclopramide HCl (Metoclopramide Hcl Inj 5 Mg/Ml 2 Ml Vial) 5 mg IV ONE ONE Stop: 11/11/23 01:01 Last Admin: 11/11/23 01:03 Dose: 5 mg Documented By: Ondansetron HCl (Ondansetron Inj 2 Mg/Ml 2 Ml Vial) Confirm Administered Dose 4 mg .ROUTE .STK-MED ONE Stop: 11/11/23 00:26 Last Admin: 11/11/23 00:41 Dose: 4 mg Documented By: Discharge Plan Visit Data Chief Complaint: Knee Injury/Pain Stated Complaint: Fall, R Knee Replacement Dehisced ED Provider: Shannon Miguel Discharge Problem: Surgical wound dehiscence, Fall Patient Disposition: Admitted As Inpatient Discharge Instructions Interventions: ED Discharge Assessment Last Done: 11/11/23 04:39 Discharge Problem: Surgical wound dehiscence Qualifiers: Encounter type: initial encounter Qualified Code(s): T81.31XA - Disruption of external operation (surgical) wound, not elsewhere classified, initial encounter
--- NOTE | 2023-11-11 03:52 | History & Physical Report ---
Date of Service November 11, 2023 Assessment & Plan (1) Surgical wound dehiscence: Plan: 68-year-old female with past medical history significant for anxiety, GERD, CKD stage III, diabetes, hyperlipidemia, history of malignant neoplasm of kidney s/p left nephrectomy no chemo/radiation, osteoarthritis, sleep apnea who had right total knee replacement 6 weeks ago comes because of fall and right knee TKR dehiscence.Patient states she is going to PT and ambulating with a cane. When she was walking around the bed tonight she felt the knee popped up and she fell down on her back and she found her left right knee surgical site opened up. Saw some blood coming out. And had some pain. Came to the ER. Given Ancef and currently the wound is Dressed.. Denies any other complaints. Denies any fevers. No chest pain or shortness of breath. No headache or back pain. No nausea. No sore throat. Appetite is okay. No abdominal pain. Normal bowel and bladder movements. Currently resting comfortably and hemodynamically stable. Surgical wound dehiscence Right TKR dehiscence S/p dressing in the ER Received Ancef which will be continued follow mrsa screen IV fluids N.p.o. IV morphine as needed Ortho consult Diabetes Hold home p.o. medications Sliding scale Will monitor Sleep apnea CPAP nightly H history of malignant neoplasm of kidney S/p left nephrectomy DVT prophylaxis SCDs on left leg for now Disposition Medical floor Full code History of Present Illness Chief Complaint: Right knee recent TKR dehiscence Primary Care Provider: Ezequiel Castelan 68-year-old female with past medical history significant for anxiety, GERD, CKD stage III, diabetes, hyperlipidemia, history of malignant neoplasm of kidney s/p left nephrectomy no chemo/radiation, osteoarthritis, sleep apnea who had right total knee replacement 6 weeks ago comes because of fall and right knee TKR dehiscence.Patient states she is going to PT and ambulating with a cane. When she was walking around the bed tonight she felt the knee popped up and she fell down on her back and she found her left right knee surgical site opened up. Saw some blood coming out. And had some pain. Came to the ER. Given Ancef and currently the wound is Dressed.. Denies any other complaints. Denies any fevers. No chest pain or shortness of breath. No headache or back pain. No nausea. No sore throat. Appetite is okay. No abdominal pain. Normal bowel and bladder movements. Currently resting comfortably and hemodynamically stable. Past medical history. As mentioned above. Past surgical history. Right rotator cuff surgery. Appendectomy bilateral carpal tunnel surgery. . History of colonoscopy and EGD. Left cataract surgery. History of left nephrectomy. Right cataract surgery. Tonsillectomy. Tooth extraction. Tubal ligation. Colposcopy with cervical biopsy. History of laparoscopy diagnostic gynecologic with biopsy. Family history. Mother had colorectal cancer. Family history significant for stomach ulcer and diabetes. Social history. Former smoking. Quit 5 years ago. No alcohol use. No drug use. Allergies Allergy/AdvReac Type Severity Reaction Status Date / Time naproxen Allergy Intermediate Hives Verified 09/28/23 07:54 codeine AdvReac Mild N/V Verified 09/28/23 07:54 ketorolac [From Toradol] AdvReac Nausea Verified 09/28/23 07:54 Home Medications Medication Instructions Recorded Confirmed Type atorvastatin 20 mg tablet 20 mg PO HS 06/08/22 11/11/23 History empagliflozin 25 mg-linagliptin 5 1 tab PO QAM 06/08/22 11/11/23 History mg tablet (Glyxambi) pantoprazole 20 mg tablet,delayed 20 mg PO QAM 06/08/22 11/11/23 History release fluoxetine 10 mg tablet 10 mg PO QAM 08/06/22 11/11/23 History fluoxetine 20 mg tablet 20 mg PO QAM 08/06/22 11/11/23 History pioglitazone 15 mg tablet (Actos) 15 mg PO QAM 08/25/23 11/11/23 History polyethylene glycol 3350 17 gram 17 g PO DAILY PRN constipation #5 09/28/23 11/11/23 Rx oral powder packet (Miralax) ea gabapentin 100 mg capsule 100 mg PO UD 11/11/23 11/11/23 History tramadol 50 mg tablet 50 mg PO Q6 PRN Pain 11/11/23 11/11/23 History Past Med/Surg History Medical History Hiatal hernia Diabetes mellitus, type 2 Sleep apnea CPAP (compliant) Osteoarthritis Chronic kidney disease Stage 3 Anxiety High cholesterol Acid reflux History of malignant neoplasm of kidney s/p left nephrectomy (2006), no chemo/XRT Surgical History Nausea and vomiting after administration of anesthetic agent History of tooth extraction History of left cataract surgery History of right cataract surgery History of esophagogastroduodenoscopy (EGD) History of colonoscopy History of carpal tunnel release of both wrists H/O rotator cuff surgery Right History of tubal ligation History of tonsillectomy History of nephrectomy Left (2006) Hx of laparoscopy (diagnostic) Gynecologic with biopsy Hx of colposcopy with cervical biopsy History of section, low transverse History of appendectomy Family History Mother Colorectal cancer Father Family history of stomach cancer Family history of diabetes mellitus Grandmother (Paternal) Family history of diabetes mellitus Denies family history of Ovarian cancer Prostate cancer Breast cancer Social History Smoking Status: Former smoker Tobacco Type: Cigarettes Second Hand Exposure: No; Do You Dip or Chew Tobacco: No; Tobacco Cessation Education Requested by Patient: No Hx Alcohol Use: Yes Alcohol type: beer Hx Substance Use: No Preferred Language: Bengali Communication Ability: Effective General Foreman Required: No Beliefs That Will Affect Care: Druze Current Living Situation: Spouse Current Living Situation Comment: and son Other Information That Helps Us Care for You: No Feels Safe at Home: Yes Safety Concerns: Feels Safe At This Time Assistive Devices: None Review of Systems Review of Systems: All systems reviewed & are unremarkable except as noted in HPI & below Physical Exam Physical Exam: General- Not in distress Head- atraumatic Eyes- PERRL. ENT- oropharynx clear Neck- supple, no JVD. Lungs- clear to auscultation no wheezing or crackles. Heart- regular rhythm; no murmur, no gallop. Abdomen- normal bowel sounds, soft, nontender, no distension. Extremities- right knee in dressing. Neuro- alert, oriented EMIL,No Dysarthria, No facial palsy, Moves extremities. Results & Data Results & Data Vital Signs (Past 12 Hours) Vital Signs Temp Pulse Resp BP Pulse Ox O2 Del Method O2 Flow Rate 11/11/23 01:50 97 Nasal Cannula 2 11/11/23 01:49 88 L Room Air 11/11/23 01:30 90 14 116/70 90 Room Air 11/11/23 00:30 82 141/82 H 97 Room Air 11/11/23 00:28 97 H 11/11/23 00:27 36.4 C L 82 16 141/82 H 97 Room Air Diagnostic Findings Laboratory Results WBC 8.41 K/ul (4.8-10.8) 11/11/23 00:33 RBC 4.14 M/uL (4.20-5.40) L 11/11/23 00:33 Hgb 12.4 g/dl (12.0-16.0) 11/11/23 00:33 Hct 37.7 % (37.0-47.0) 11/11/23 00:33 MCV 91.1 fL (80.0-100.0) 11/11/23 00:33 MCH 30.0 pg (25.0-34.0) 11/11/23 00:33 MCHC 32.9 g/dL (32.0-36.0) 11/11/23 00:33 RDW Std Deviation 46.2 fL (36.4-46.3) 11/11/23 00:33 RDW Coeff of Bettina 14.0 % (11.5-14.5) 11/11/23 00:33 Plt Count 190 K/uL (130-400) 11/11/23 00:33 MPV 10.1 fL (9.4-12.4) 11/11/23 00:33 Immature Gran % (Auto) 0.4 % 11/11/23 00:33 Neut % (Auto) 65.8 % 11/11/23 00:33 Lymph % (Auto) 24.6 % 11/11/23 00:33 [place] % (Auto) 6.2 % 11/11/23 00:33 Eos % (Auto) 2.5 % 11/11/23 00:33 Baso % (Auto) 0.5 % 11/11/23 00:33 Neut # (Auto) 5.54 K/uL (1.40-6.50) 11/11/23 00:33 Lymph # (Auto) 2.07 K/uL (1.20-3.40) 11/11/23 00:33 [place] # (Auto) 0.52 K/uL (0.11-0.59) 11/11/23 00:33 Eos # (Auto) 0.21 K/uL (0.00-0.50) 11/11/23 00:33 Baso # (Auto) 0.04 K/uL (0.00-0.20) 11/11/23 00:33 Immature Gran # (Auto) 0.03 K/uL (0.01-0.20) 11/11/23 00:33 Sodium 139 mmol/L (136-145) 11/11/23 00:33 Potassium 3.3 mmol/L (3.5-5.1) L 11/11/23 00:33 Chloride 103 mmol/L (98-107) 11/11/23 00:33 Carbon Dioxide 26 mmol/L (21-32) 11/11/23 00:33 Anion Gap 10 (3-11) 11/11/23 00:33 BUN 16 mg/dl (6-23) 11/11/23 00:33 Creatinine 0.98 mg/dl (0.6-1.2) 11/11/23 00:33 Est Cr Clr Drug Dosing 65.2 ml/min 11/11/23 00:33 Est GFR ( Amer) 69.7 ml/min 11/11/23 00:33 Est GFR (Non-Af Amer) 60.1 ml/min 11/11/23 00:33 BUN/Creatinine Ratio 16.3 (10-20) 11/11/23 00:33 Glucose 154 mg/dl (70-99(Fasting)) H 11/11/23 00:33 Calcium 9.5 mg/dl (8.6-10.3) 11/11/23 00:33 Total Bilirubin 0.6 mg/dl (0.2-1.0) 11/11/23 00:33 AST 12 U/L (13-39) L 11/11/23 00:33 ALT 9 U/L (7-52) 11/11/23 00:33 Alkaline Phosphatase 77 U/L (34-104) 11/11/23 00:33 Total Protein 7.1 gm/dl (6.0-8.3) 11/11/23 00:33 Albumin 4.1 gm/dl (3.4-5.0) 05/10/24 00:33 Globulin 3.0 gm/dl (2.5-4.0) 11/11/23 00:33 Albumin/Globulin Ratio 1.4 (0.9-2) 11/11/23 00:33 (1) Surgical wound dehiscence Encounter type: initial encounter Qualified Code(s): T81.31XA - Disruption of external operation (surgical) wound, not elsewhere classified, initial encounter
[2023-11-11] MEDS ORDERED: POLYETHYLENE (MIRALAX) 17 GM PACK PO PRN ×2 (05:22→15:04)
[2023-11-11] MEDS ORDERED: ACETAMINOPHEN 325 MG TAB PO PRN (05:22)
[2023-11-11] MEDS ORDERED: MoRPHine SULFATE 4 MG/ML 1 ML CARP\\VIAL IV PRN (05:22)
[2023-11-11] MEDS ORDERED: CARBOHYDRATES FOR HYPOGLYCEMIA PO PRN (05:22)
[2023-11-11] MEDS ORDERED: GLUCAGON FOR INJ 1 MG VIAL SQ PRN (05:22)
[2023-11-11] MEDS ORDERED: GLUCOSE 10 TAB/TUBE PO PRN (05:22)
[2023-11-11] MEDS ORDERED: GLUCOSE 40% GEL 15 GM TUBE PO PRN (05:22)
[2023-11-11] MEDS ORDERED: DEXTROSE 50% 50 ML SYRINGE IV PRN (05:22)
[2023-11-11] MEDS: SODIUM CHLORIDE 0.9% 1,000 ML IV SCH ×2 (05:36→15:44)
--- NOTE | 2023-11-11 07:00 | XRay Report ---
XR knee RT 1 or 2V routine CLINICAL HISTORY: fall COMPARISON STUDY: Right knee 09/28/2023 FINDINGS: There is a right total knee arthroplasty. The hardware is intact. No fracture or dislocatio n. Large skin defect is seen anteriorly suggestive reopening of the patient's surgical excision. This results in soft tissue gas within the anterior knee and the joint space. IMPRESSION: 1. No fractures. 2. The hardware appears intact. 3. Soft tissue gas within the anterior knee and within the joint space. ACT 112: Negative or not required by law. Electronically signed by: Oskar Weiner M.D. 11/11/2023 6:59 AM
--- NOTE | 2023-11-11 07:26 | Orthopedic Consultation ---
Date of Consultation November 11, 2023 Assessment & Plan (1) Surgical wound dehiscence: Dehiscence right knee status post fall. Dr. Zepeda was notified last night of the wound. Unfortunately at this time, Dr. Keith is out of town. Case will be discussed with [facility] [[email or web address]] physicians. Patient will need to undergo open irrigation and debridement, polyethylene bearing change and repair of wound dehiscence. We will continue n.p.o. status for now until further plans are arranged. History of Present Illness Reason for Consultation: Right knee wound dehiscence Attending Physician: Theresa Starr MD History of Present Illness patient is a 68-year-old female known to our practice who is status post right total knee arthroplasty by Dr. Keith on 09/28/23. Patient states that she been progressing well with her physical therapy. She had obtained 130 degrees of flexion And was ambulating well. Patient states that approximate 2 weeks ago she had a little bit of weakness that developed with the leg but did not seem to progress and was resolving. She had seen Dr. Keith in the office approximately 1 week ago for her second postoperative visit. Patient states that the visit went well. She was able to do straight leg raises and Dr. Keith was pleased with her progress. Patient was continuing to do some physical therapy and leg strengthening. She states that yesterday she was in physical therapy and was progressing well. At that point in time she was also doing strong straight leg raises without difficulty. Range of motion appeared to be normal. She states that last night she was coming around the corner of her bed, she felt that the knee gave out on her and she began to fall. She states that she did not bang her knee onto the ground but it sounds like she hyperflexed the knee at that point she felt a pop and had pain in her right knee. She looked down and noticed blood. He then came to the emergency room where she was seen by the staff. On examination of the wound it was noted that they could see into the joint and metal was showing. She had completely dehisced her wound down to the prosthesis. Any bleeding was controlled and a dressing was applied. Patient was started on IV antibiotics and was admitted for further care. Patient denies any shortness of breath, chest pain, lightheadedness prior to or after the fall. She denies any loss of consciousness. Allergies Allergy/AdvReac Type Severity Reaction Status Date / Time naproxen Allergy Intermediate Hives Verified 09/28/23 07:54 codeine AdvReac Mild N/V Verified 09/28/23 07:54 ketorolac [From Toradol] AdvReac Nausea Verified 09/28/23 07:54 Home Medications Medication Instructions Recorded Confirmed Type atorvastatin 20 mg tablet 20 mg PO HS 06/08/22 11/11/23 History empagliflozin 25 mg-linagliptin 5 1 tab PO QAM 06/08/22 11/11/23 History mg tablet (Glyxambi) pantoprazole 20 mg tablet,delayed 20 mg PO QAM 06/08/22 11/11/23 History release fluoxetine 10 mg tablet 10 mg PO QAM 08/06/22 11/11/23 History fluoxetine 20 mg tablet 20 mg PO QAM 08/06/22 11/11/23 History pioglitazone 15 mg tablet (Actos) 15 mg PO QAM 08/25/23 11/11/23 History polyethylene glycol 3350 17 gram 17 g PO DAILY PRN constipation #5 09/28/23 11/11/23 Rx oral powder packet (Miralax) ea gabapentin 100 mg capsule 100 mg PO UD 11/11/23 11/11/23 History tramadol 50 mg tablet 50 mg PO Q6 PRN Pain 11/11/23 11/11/23 History Patient History Medical History Hiatal hernia Diabetes mellitus, type 2 Sleep apnea CPAP (compliant) Osteoarthritis Chronic kidney disease Stage 3 Anxiety High cholesterol Acid reflux History of malignant neoplasm of kidney s/p left nephrectomy (2006), no chemo/XRT Surgical History Nausea and vomiting after administration of anesthetic agent History of tooth extraction History of left cataract surgery History of right cataract surgery History of esophagogastroduodenoscopy (EGD) History of colonoscopy History of carpal tunnel release of both wrists H/O rotator cuff surgery Right History of tubal ligation History of tonsillectomy History of nephrectomy Left (2006) Hx of laparoscopy (diagnostic) Gynecologic with biopsy Hx of colposcopy with cervical biopsy History of section, low transverse History of appendectomy Family History Mother Colorectal cancer Father Family history of stomach cancer Family history of diabetes mellitus Grandmother (Paternal) Family history of diabetes mellitus Denies family history of Ovarian cancer Prostate cancer Breast cancer Social History Smoking Status: Former smoker Tobacco Type: Cigarettes Second Hand Exposure: No; Do You Dip or Chew Tobacco: No; Tobacco Cessation Education Requested by Patient: No Hx Alcohol Use: Yes Alcohol type: beer Hx Substance Use: No Preferred Language: Paraguayan Communication Ability: Effective Garageman Required: No Beliefs That Will Affect Care: Jainism Current Living Situation: Spouse Current Living Situation Comment: and son Other Information That Helps Us Care for You: No Feels Safe at Home: Yes Safety Concerns: Feels Safe At This Time Assistive Devices: None Physical Exam Physical Exam: On examination, the patient is a 68-year-old white female. She is in no acute distress. Pleasant and cooperative. On examination of her right lower extremity, there is a dressing on her right knee. There is a pillow placed under her right knee to keep it somewhat flexed. There is some mild bloody drainage noted on the dressing. It is not saturated. This is removed revealing that her whole incision has dehisced. I can see after removing some of the gauze that the capsule surrounding the joint has also dehisced. More dressings were placed on the wound and it was rewrapped with a Kerlix wrap. Patient is able to flex and extend the knee somewhat but has pain when doing so. She has good ankle range of motion and strength and denies any decrease sensation into the right foot. Mild discomfort over the right lateral thigh but no noted swelling or bruising. Calves are soft and nontender. Neurovascular appears intact. Results & Data Vital Signs (Past 12 Hours) Vital Signs Temp Pulse Pulse Resp BP BP Pulse Ox 11/11/23 05:22 36.4 C L 87 17 156/74 H 99 11/11/23 04:45 36.4 C L 87 17 156/74 H 99 11/11/23 04:45 11/11/23 04:45 36.6 C 87 17 156/74 H 99 11/11/23 04:39 11/11/23 03:00 72 16 120/72 99 11/11/23 02:00 83 16 131/69 97 11/11/23 01:50 97 11/11/23 01:49 88 L 11/11/23 01:30 90 14 116/70 90 11/11/23 00:30 82 141/82 H 97 11/11/23 00:28 97 H 11/11/23 00:27 36.4 C L 82 16 141/82 H 97 O2 Del Method O2 Flow Rate 11/11/23 05:22 Nasal Cannula 2 11/11/23 04:45 Nasal Cannula 2 11/11/23 04:45 Nasal Cannula 2 11/11/23 04:45 Nasal Cannula 2 11/11/23 04:39 Nasal Cannula 2 11/11/23 03:00 Nasal Cannula 2 11/11/23 02:00 Nasal Cannula 2 11/11/23 01:50 Nasal Cannula 2 11/11/23 01:49 Room Air 11/11/23 01:30 Room Air 11/11/23 00:30 Room Air 11/11/23 00:28 11/11/23 00:27 Room Air Laboratory Results Laboratory Results WBC 8.41 K/ul (4.8-10.8) 11/11/23 00:33 RBC 4.14 M/uL (4.20-5.40) L 11/11/23 00:33 Hgb 12.4 g/dl (12.0-16.0) 11/11/23 00:33 Hct 37.7 % (37.0-47.0) 11/11/23 00:33 MCV 91.1 fL (80.0-100.0) 11/11/23 00:33 MCH 30.0 pg (25.0-34.0) 11/11/23 00:33 MCHC 32.9 g/dL (32.0-36.0) 11/11/23 00:33 RDW Std Deviation 46.2 fL (36.4-46.3) 11/11/23 00:33 RDW Coeff of Bettina 14.0 % (11.5-14.5) 11/11/23 00:33 Plt Count 190 K/uL (130-400) 11/11/23 00:33 MPV 10.1 fL (9.4-12.4) 11/11/23 00:33 Immature Gran % (Auto) 0.4 % 11/11/23 00:33 Neut % (Auto) 65.8 % 11/11/23 00:33 Lymph % (Auto) 24.6 % 11/11/23 00:33 [place] % (Auto) 6.2 % 11/11/23 00:33 Eos % (Auto) 2.5 % 11/11/23 00:33 Baso % (Auto) 0.5 % 11/11/23 00:33 Neut # (Auto) 5.54 K/uL (1.40-6.50) 11/11/23 00:33 Lymph # (Auto) 2.07 K/uL (1.20-3.40) 11/11/23 00:33 [place] # (Auto) 0.52 K/uL (0.11-0.59) 11/11/23 00:33 Eos # (Auto) 0.21 K/uL (0.00-0.50) 11/11/23 00:33 Baso # (Auto) 0.04 K/uL (0.00-0.20) 11/11/23 00:33 Immature Gran # (Auto) 0.03 K/uL (0.01-0.20) 11/11/23 00:33 Sodium 139 mmol/L (136-145) 11/11/23 00:33 Potassium 3.3 mmol/L (3.5-5.1) L 11/11/23 00:33 Chloride 103 mmol/L (98-107) 11/11/23 00:33 Carbon Dioxide 26 mmol/L (21-32) 11/11/23 00:33 Anion Gap 10 (3-11) 11/11/23 00:33 BUN 16 mg/dl (6-23) 11/11/23 00:33 Creatinine 0.98 mg/dl (0.6-1.2) 11/11/23 00:33 Est Cr Clr Drug Dosing 65.2 ml/min 11/11/23 00:33 Est GFR ( Amer) 69.7 ml/min 11/11/23 00:33 Est GFR (Non-Af Amer) 60.1 ml/min 11/11/23 00:33 BUN/Creatinine Ratio 16.3 (10-20) 11/11/23 00:33 Glucose 154 mg/dl (70-99(Fasting)) H 05/10/24 00:33 POC Glucose 125 mg/dl (70-99) H 11/11/23 07:28 Calcium 9.5 mg/dl (8.6-10.3) 11/11/23 00:33 Total Bilirubin 0.6 mg/dl (0.2-1.0) 11/11/23 00:33 AST 12 U/L (13-39) L 11/11/23 00:33 ALT 9 U/L (7-52) 11/11/23 00:33 Alkaline Phosphatase 77 U/L (34-104) 11/11/23 00:33 Total Protein 7.1 gm/dl (6.0-8.3) 11/11/23 00:33 Albumin 4.1 gm/dl (3.4-5.0) 11/11/23 00:33 Globulin 3.0 gm/dl (2.5-4.0) 11/11/23 00:33 Albumin/Globulin Ratio 1.4 (0.9-2) 11/11/23 00:33 Impressions Knee X-Ray 11/11/23 00:30 XR knee RT 1 or 2V routine CLINICAL HISTORY: fall COMPARISON STUDY: Right knee 09/28/2023 FINDINGS: There is a right total knee arthroplasty. The hardware is intact. No fracture or dislocation. Large skin defect is seen anteriorly suggestive reopening of the patient's surgical excision. This results in soft tissue gas within the anterior knee and the joint space. IMPRESSION: 1. No fractures. 2. The hardware appears intact. 3. Soft tissue gas within the anterior knee and within the joint space. ACT 112: Negative or not required by law. Electronically signed by: Oskar Weiner M.D. 11/11/2023 6:59 AM (1) Surgical wound dehiscence Encounter type: initial encounter Qualified Code(s): T81.31XA - Disruption of external operation (surgical) wound, not elsewhere classified, initial encounter
[2023-11-11] MEDS: INSULIN ASPART PER UNIT CHARGE SC SCH ×2 (08:03→17:11)
[2023-11-11 08:59] LABS: Basophils # (auto) 0.04 K/uL (0.00-0.20); Basophils % (auto) 0.5 %; Eosinophils % (auto) 1.3 %; Hematocrit (blood only) 38.2 % (37.0-47.0); Hemoglobin 12.1 g/dl (12.0-16.0); Immature Granulocytes # (auto) 0.05 K/uL (0.01-0.20); Immature Granulocytes % (auto) 0.6 %; Lymphocytes # (auto) 1.53 K/uL (1.20-3.40); Lymphocytes % (auto) 19.4 %; Mean Corpuscular Hgb Conc 31.7 g/dL (32.0-36.0); Mean Corpuscular Volume 91.6 fL (80.0-100.0); Mean Platelet Volume 10.1 fL (9.4-12.4); Monocytes # (auto) 0.46 K/uL (0.11-0.59); Monocytes % (auto) 5.8 %; Neutrophils # (auto) 5.71 K/uL (1.40-6.50); Neutrophils % (auto) 72.4 %; Platelet Count 185 K/uL (130-400); RDW Coefficient of Variation 13.9 % (11.5-14.5); RDW Standard Deviation 46.7 fL (36.4-46.3); Red Blood Count 4.17 M/uL (4.20-5.40); White Blood Count 7.89 K/ul (4.8-10.8)
[2023-11-11] MEDS ORDERED: FLUoxetine HCL 20 MG/5 ML 120ML BTL PO SCH ×2 (09:00→10:00)
[2023-11-11] MEDS: PANTOprazole 40 MG TAB PO SCH (09:12)
[2023-11-11] MEDS: POTASSIUM CHLORIDE / WTR 10 MEQ/100 ML PLCT IV SCH (09:13)
[2023-11-11] MEDS: ceFAZolin 2000MG 2,000 MG/15 ML SYR IV SCH (09:13)
[2023-11-11 09:18] LABS: BUN Creatinine Ratio 14.6 (10-20); Calcium 9.2 mg/dl (8.6-10.3); Creatinine Clr Calc Pharmacy 62.6 ml/min; Est GFR (African American) 86.4 ml/min; Est GFR (Non-African American) 74.6 ml/min; Magnesium 1.6 mg/dl (1.7-2.4); Potassium 3.8 mmol/L (3.5-5.1)
[2023-11-11 10:03] LABS: Estimated Average Glucose 114 mg/dl; Hemoglobin A1C 5.6 % (4.5-5.6)
[2023-11-11] MEDS ORDERED: BUPIVACAINE 0.25% PF 30 ML VIAL ONE (10:29)
[2023-11-11] MEDS: FLUoxetine HCL 20 MG/5 ML 120ML BTL PO SCH (10:34)
[2023-11-11] MEDS ORDERED: MIDAZOLAM HCL 1 MG/ML 2ML VIAL ONE (10:54)
[2023-11-11] MEDS ORDERED: fentaNYL citrate PF 100 MCG/2 ML VIAL ONE (10:54)
[2023-11-11] MEDS ORDERED: ePHEDrine sulfate 50 MG/ML AMP IV PRN (11:20)
[2023-11-11] MEDS ORDERED: HYDROmorphone INJ 1 MG/ML SYRINGE IV PRN (11:20)
[2023-11-11] MEDS ORDERED: ATROPINE SULFATE 0.1 MG/ML 10ML SYR IV PRN (11:20)
[2023-11-11] MEDS ORDERED: fentaNYL citrate PF 100 MCG/2 ML VIAL IV PRN (11:20)
[2023-11-11] MEDS ORDERED: PROMETHAZINE HCL 6.25 MG in SODIUM CHLORIDE 0.9% 50 ML IV PRN (11:20)
[2023-11-11] MEDS ORDERED: ONDANSETRON INJ 2 MG/ML 2 ML VIAL IV PRN ×2 (11:20→15:04)
--- NOTE | 2023-11-11 11:23 | Anesthesiology Consultation ---
Date of Service November 11, 2023 Assessment & Plan (1) Encounter for pre-operative examination: Chart Review Chart Review: Acceptable Risk for Surgery and Patient NOT seen in Pre Admission Testing Consults Requested none History Surgery Operation Date: 11/11/23 12:40 Proposed Procedures p Incision and Drainage Poly Exchange Right Total Knee Arthroplasty - Duong Wan DO Height/Weight Height: 5 ft 8 in Weight: 58.72 kg Allergies Allergy/AdvReac Type Severity Reaction Status Date / Time naproxen Allergy Intermediate Hives Verified 09/28/23 07:54 codeine AdvReac Mild N/V Verified 09/28/23 07:54 ketorolac [From Toradol] AdvReac Nausea Verified 09/28/23 07:54 Medications Home Medications Medication Instructions Recorded Confirmed Last Taken atorvastatin 20 mg tablet 20 mg PO HS 06/08/22 11/11/23 11/10/23 empagliflozin 25 mg-linagliptin 5 1 tab PO QAM 06/08/22 11/11/23 11/10/23 mg tablet (Glyxambi) pantoprazole 20 mg tablet,delayed 20 mg PO QAM 06/08/22 11/11/23 11/10/23 release fluoxetine 10 mg tablet 10 mg PO QAM 08/06/22 11/11/23 09/27/23 09:00 fluoxetine 20 mg tablet 20 mg PO QAM 08/06/22 11/11/23 09/28/23 05:30 pioglitazone 15 mg tablet (Actos) 15 mg PO QAM 08/25/23 11/11/23 09/27/23 09:00 polyethylene glycol 3350 17 gram 17 g PO DAILY PRN constipation #5 09/28/23 11/11/23 Unknown oral powder packet (Miralax) ea gabapentin 100 mg capsule 100 mg PO UD 11/11/23 11/11/23 Unknown tramadol 50 mg tablet 50 mg PO Q6 PRN Pain 11/11/23 11/11/23 Unknown Active Medications Generic Name Dose Route Start Last Admin Trade Name Freq PRN Reason Stop Dose Admin Sodium Chloride 1,000 mls @ 125 mls/hr 11/11/23 05:22 11/11/23 05:36 Nss IV 12/11/23 05:21 125 mls/hr .Q8H ELÍAS Administration Cefazolin Sodium 2,000 mg in 15 mls @ 3.75 mls/min 11/11/23 08:00 11/11/23 09:13 Ancef 2000mg IV 11/18/23 07:59 3.75 mls/min Q8H ELÍAS Administration Insulin Aspart 0 units 11/11/23 07:30 11/11/23 08:03 Insulin Aspart Per Unit Charge SC 12/11/23 07:29 Not Given Q6H ELÍAS Pantoprazole Sodium 40 mg 11/11/23 09:00 11/11/23 09:12 Pantoprazole 40 Mg Tab PO 12/11/23 08:59 40 mg QAM ELÍAS Administration NPO Date Last Intake of Fluids: 11/10/23 Time Last Intake of Fluids: 21:00 Last Intake of Fluids Comment: sip with meds Date Last Intake of Solids: 11/10/23 Time Last Intake of Solids: 21:00 Past Medical History Medical History Hiatal hernia Diabetes mellitus, type 2 Sleep apnea CPAP (compliant) Osteoarthritis Chronic kidney disease Stage 3 Anxiety High cholesterol Acid reflux History of malignant neoplasm of kidney s/p left nephrectomy (2006), no chemo/XRT Past Family History Family History Mother Colorectal cancer Father Family history of stomach cancer Family history of diabetes mellitus Grandmother (Paternal) Family history of diabetes mellitus Denies family history of Ovarian cancer Prostate cancer Breast cancer Past Surgical History Surgical History Nausea and vomiting after administration of anesthetic agent History of tooth extraction History of left cataract surgery History of right cataract surgery History of esophagogastroduodenoscopy (EGD) History of colonoscopy History of carpal tunnel release of both wrists H/O rotator cuff surgery Right History of tubal ligation History of tonsillectomy History of nephrectomy Left (2006) Hx of laparoscopy (diagnostic) Gynecologic with biopsy Hx of colposcopy with cervical biopsy History of section, low transverse History of appendectomy Social History Smoking Status: Former smoker tobacco type: cigarettes Do You Dip or Chew Tobacco: No Hx Alcohol Use: Yes Alcohol type: beer alcohol intake frequency: a few times a month Hx Substance Use: No substance use type: does not use Physical Exam Vital Signs Last Vital Signs Temp 36.8 C 11/11/23 11:04 Pulse 82 11/11/23 11:04 Resp 18 11/11/23 11:04 BP 148/82 H 11/11/23 11:04 Pulse Ox 98 11/11/23 11:04 O2 Del Method Room Air 11/11/23 11:04 O2 Flow Rate 2 11/11/23 08:16 Testing Laboratory Results 11/11/23 08:40 11/11/23 08:40 Hemoglobin A1c 5.6 % (4.5-5.6) 11/11/23 08:40 11/11/23 07:28 POC Glucose 125 H Electrocardiogram Testing Electrocardiogram Date: 04/14/23 SR at 63bpm. "Normal ECG" Chest X-Ray Date: 03/27/23 Findings: + NAD
[2023-11-11] MEDS ORDERED: BUPIVACAINE 0.5 % 5 MG/1 ML PF 10ML VIAL ONE (11:42)
--- NOTE | 2023-11-11 11:45 | History & Physical Bridge Note ---
Date of Service November 11, 2023 History & Physical Bridge Note I have examined the patient, reviewed the History & Physical and in the interval since the performance of the History & Physical I have noted the following changes of clinical significance: no changes noted
[2023-11-11] MEDS ORDERED: PROPOFOL IV EMULSION 10 MG/ML 20 ML VIAL IV ONE ×2 (12:37→12:58)
[2023-11-11] MEDS ORDERED: ceFAZolin 330 MG/ML 1 GM VIAL ONE (12:38)
[2023-11-11] MEDS ORDERED: ePHEDrine sulfate 50 MG/5 ML SYR ONE (12:51)
[2023-11-11] MEDS ORDERED: ONDANSETRON INJ 2 MG/ML 2 ML VIAL ONE (13:21)
--- NOTE | 2023-11-11 13:23 | Operative Report ---
Post Operative Report Pre & Post Diagnosis Operation Date: 11/11/23 08:40 Pre-Op DiagnosisDehiscence right total knee arthroplasty Post-Op Diagnosis: Wound dehiscence right total knee arthroplasty with tear quadricep tendon and retinaculum I identified the patient and participated in the time-out.: Yes Procedure Operation Date: 11/11/23 08:40 Actual Procedures p Incision and Drainage Poly Exchange-Right Knee, Repair of Quadricep TendonRepair medial lateral retinaculum with change of polyethylene to size 15 constrained(Right) - Duong Wan DO Surgeon Duong Wan DO Chief [employer] Estimated Blood Loss 10 Findings Consistent with Post-Op Diagnosis Patient presents today after having felt her knee buckle and to have a hyperflexion episode while at home earlier this morning relates her knee not hitting the ground but having presents with a dehiscence of her entire anterior incision with exposed metal and tears into the retinaculum and quadriceps tendon Specimens None cultures aerobic anaerobic Gram stain sent intraoperatively from knee joint Drains None Anesthesia Type MAC Spinal Regional Complications none Disposition Accompanied Patient To Recovery: No Disposition: Recovery Room Indications Patient presents with a open right knee incision from dehiscence of a hyperflexion injury with exposed metal from her total knee implant from 6 weeks prior Description of Procedure After proper prepping and draping the right lower extremity the right knee joint was irrigated with 9 L of sterile saline solution the knee was also scrubbed with Betadine and a scrub brush the poly had been removed for further facilitation of cleaning of all soft tissues there was a tear noted up into the quadricep tendon with tears into both medial and lateral retinaculum the poly was firm and removed was trialed up to a size 15 with constrained due to the retinacular tears the patellar tracking was evaluated as well and was noted to be excellent subsequently after thorough irrigation with 9 L of sterile saline solution scrubbing of the implants the poly had been changed the wound was once again irrigated intraoperative cultures were taken aerobic anaerobic with Gram stain as well as after thorough irrigation debridement lavage of the wound was then irrigated with the experience before placement of the poly the wound then thoroughly irrigated once again the quadricep tendon was repaired utilizing two #2 FiberWire the medial lateral neck was repaired with #2 FiberWire of the medial retinacular incision was repaired utilizing 2 FiberWire 1 Vicryl subcu was closed with #2-0 Vicryl skin was closed with skin clips sterile compressive dressing as well as a knee immobilizer was placed postoperatively the PA [employer] was an active placement case participated in exposure wound irrigation poly change close assistance with closure of deep fascia subcu and skin was necessary for the case I attest to the content of the Intraoperative Record and any orders documented therein. Any exceptions are noted below.
--- NOTE | 2023-11-11 14:59 | Anesthesiology Progress Note ---
Date of Service November 11, 2023 Anesthesia Post Procedure Vital Signs Vital Signs: Temp Pulse Pulse Pulse Pulse Resp BP 11/11/23 14:45 71 13 11/11/23 14:35 98.2 F 77 14 11/11/23 14:25 70 14 11/11/23 14:15 79 18 11/11/23 14:05 76 15 11/11/23 13:58 97.2 F L 77 15 11/11/23 11:04 98.2 F 82 18 11/11/23 08:16 97.7 F 68 15 11/11/23 05:22 97.5 F L 87 17 11/11/23 04:45 97.5 F L 87 17 11/11/23 04:45 11/11/23 04:45 97.9 F 87 17 11/11/23 04:39 11/11/23 03:00 72 16 120/72 11/11/23 02:00 83 16 131/69 11/11/23 01:50 11/11/23 01:49 11/11/23 01:30 90 14 116/70 11/11/23 00:30 82 141/82 H 11/11/23 00:28 97 H 11/11/23 00:27 97.5 F L 82 16 141/82 H BP BP Pulse Ox O2 Del Method O2 Flow Rate 11/11/23 14:45 125/54 L 94 Room Air 11/11/23 14:35 124/62 94 Room Air 11/11/23 14:25 125/63 94 Room Air 11/11/23 14:15 127/63 96 Room Air 11/11/23 14:05 131/57 L 95 Room Air 11/11/23 13:58 130/54 L 100 Room Air 11/11/23 11:04 148/82 H 98 Room Air 11/11/23 08:16 137/64 100 Nasal Cannula 2 11/11/23 05:22 156/74 H 99 Nasal Cannula 2 11/11/23 04:45 156/74 H 99 Nasal Cannula 2 11/11/23 04:45 Nasal Cannula 2 11/11/23 04:45 156/74 H 99 Nasal Cannula 2 11/11/23 04:39 Nasal Cannula 2 11/11/23 03:00 99 Nasal Cannula 2 11/11/23 02:00 97 Nasal Cannula 2 11/11/23 01:50 97 Nasal Cannula 2 11/11/23 01:49 88 L Room Air 11/11/23 01:30 90 Room Air 11/11/23 00:30 97 Room Air 11/11/23 00:28 11/11/23 00:27 97 Room Air Pain Intensity Right Knee: Pain Intensity: 0 Transfer of Care Handoff Completed per policy Notes Mental Status: alert / awake / arousable and participated in evaluation Patient Amnestic to Procedure: Yes Nausea / Vomiting: adequately controlled Pain: adequately controlled Airway Patency, RR, SpO2: stable & adequate BP & HR: stable & adequate Hydration State: stable & adequate Neuraxial Anesthesia: was administered and sensory block is resolving Anesthetic Complications: no major complications apparent and Pt Satisfied with anesthetic care
[2023-11-11] MEDS ORDERED: NALOXONE HCL 0.4 MG/1 ML VIAL/CARP IV PRN (15:04)
[2023-11-11] MEDS ORDERED: diphenhydrAMINE Capsule 25 MG CAP PO PRN (15:04)
[2023-11-11] MEDS ORDERED: MAGNESIUM HYDROXIDE SUSP 30 ML UDC PO PRN (15:04)
[2023-11-11] MEDS ORDERED: bisacodyL 10 MG SUPP PR PRN (15:04)
--- NOTE | 2023-11-11 15:06 | XRay Report ---
XR knee RT 1 or 2V routine CLINICAL HISTORY: Postoperative evaluation. COMPARISON: Right knee radiographs November 11, 2023 at 12:44 AM. FINDINGS: Alignment of the right knee arthroplasty is anatomic. There is no periprosthetic fracture or unexpected radiopaque foreign body. A 2 cm ossific/calcific density projects posterior to the femo ral component. There are skin william. There is soft tissue gas. IMPRESSION: 1. Intact total right knee arthroplasty. No periprosthetic fractures. 2. Indeterminate 2 cm calcific/ossific density which projects posterior to the femoral component on l ateral projection. ACT 112: Negative or not required by law. Electronically signed by: Gordo Snell M.D. 11/11/2023 3:05 PM
[2023-11-11] MEDS ORDERED: Nursing to Pharmacy Communication SCH (15:15)
[2023-11-11] MEDS: SCOPOLAMINE 1 MG/72 HR TDSY PATCH TD STA (15:27)
[2023-11-11] MEDS: FLUoxetine HCL 20 MG CAP PO SCH (15:44)
[2023-11-11] MEDS: GABAPENTIN 100 MG CAP PO SCH (15:46)
[2023-11-11] MEDS ORDERED: CHECK SCOPOLAMINE PATCH PLACEMENT SCH (16:00)
--- NOTE | 2023-11-11 16:21 | Hospitalist Progress Note ---
Date of Service November 11, 2023 Assessment & Plan (1) Surgical wound dehiscence: Plan: 68-year-old female with past medical history significant for anxiety, GERD, CKD stage III, diabetes, hyperlipidemia, history of malignant neoplasm of kidney s/p left nephrectomy no chemo/radiation, osteoarthritis, sleep apnea who had right total knee replacement 6 weeks ago comes because of fall and right knee TKR dehiscence.Patient states she is going to PT and ambulating with a cane. When she was walking around the bed tonight she felt the knee popped up and she fell down on her back and she found her left right knee surgical site opened up. Saw some blood coming out. And had some pain. Came to the ER. Given Ancef and currently the wound is Dressed.. Denies any other complaints. Denies any fevers. No chest pain or shortness of breath. No headache or back pain. No nausea. No sore throat. Appetite is okay. No abdominal pain. Normal bowel and bladder movements. Currently resting comfortably and hemodynamically stable. Surgical wound dehiscence Right TKR dehiscence S/p dressing in the ER Received Ancef which will be continued Appreciate Ortho input and recommendation Status post incision and drainage 6 poly exchange of right knee and repair of quadriceps tendon on right on 11/11/2023 She has been stable following surgery with some pain in the right knee and numbness involving the right leg Management as per Ortho Diabetes Hold home p.o. medications Sliding scale Will monitor Solitary kidney Advised to drink more fluid Continue IV fluid now Check PRP Sleep apnea CPAP nightly H history of malignant neoplasm of kidney S/p left nephrectomy DVT prophylaxis SCDs on left leg for now Disposition Medical floor Full code Admission and Anticipated Discharge Date Admission Date: November 11, 2023 Subjective 11/11/2023 The patient was seen and examined in medical floor She is a status post incision and drainage was poly exchange right knee and repair of quadriceps tendon Right leg is numb and right knee is bandaged Feeling cold but otherwise no significant symptoms Review of Systems Review of Systems: All systems reviewed and are unremarkable except as noted below Physical Exam Physical Exam: Lying in bed without any acute distress Constitutional: well developed, well nourished and + ill appearing Eyes: PERRL, conjunctivae normal, anicteric sclerae ENMT: external ear and nose normal, oropharynx normal Neck: trachea midline, no thyromegaly Respiratory: no respiratory distress Auscultation: lungs clear to auscultation bilaterally Cardiovascular: Rate/Rhythm: regular rate and regular rhythm; not tachycardic Heart Sounds: normal S1 and normal S2; no murmur Extremities: no edema Gastrointestinal (Abdomen): Inspection/Auscultation: normal bowel sounds; abd omen not distended Percussion/Palpation: abdomen soft; abdomen nontender Musculoskeletal: Status post right knee surgery as above. Right knee is bandaged. Numbness in right leg but can move the toes Neurologic: normal touch/pain/proprioception and moves all extremities Lymphatic: no cervical or axillary lymphadenopathy Results & Data Results & Data Vital Signs (Past 12 Hours) Vital Signs Temp Pulse Pulse Pulse Resp BP BP 11/11/23 15:24 36.5 C 72 16 135/77 11/11/23 15:00 36.5 C 78 18 156/66 H 11/11/23 14:45 71 13 125/54 L 11/11/23 14:35 36.8 C 77 14 124/62 11/11/23 14:25 70 14 125/63 11/11/23 14:15 79 18 127/63 11/11/23 14:05 76 15 131/57 L 11/11/23 13:58 36.2 C L 77 15 130/54 L 11/11/23 11:04 36.8 C 82 18 148/82 H 11/11/23 08:16 36.5 C 68 15 137/64 11/11/23 05:22 36.4 C L 87 17 156/74 H 11/11/23 04:45 36.4 C L 87 17 156/74 H 11/11/23 04:45 11/11/23 04:45 36.6 C 87 17 156/74 H 11/11/23 04:39 Pulse Ox O2 Del Method O2 Flow Rate 11/11/23 15:24 96 Room Air 11/11/23 15:00 96 Room Air 11/11/23 14:45 94 Room Air 11/11/23 14:35 94 Room Air 11/11/23 14:25 94 Room Air 11/11/23 14:15 96 Room Air 11/11/23 14:05 95 Room Air 11/11/23 13:58 100 Room Air 11/11/23 11:04 98 Room Air 11/11/23 08:16 100 Nasal Cannula 2 11/11/23 05:22 99 Nasal Cannula 2 11/11/23 04:45 99 Nasal Cannula 2 11/11/23 04:45 Nasal Cannula 2 11/11/23 04:45 99 Nasal Cannula 2 11/11/23 04:39 Nasal Cannula 2 Laboratory Results Short CBC 11/11/23 11/11/23 Range/Units 00:33 08:40 WBC 8.41 7.89 (4.8-10.8) K/ul Hgb 12.4 12.1 (12.0-16.0) g/dl Hct 37.7 38.2 (37.0-47.0) % Plt Count 190 185 (130-400) K/uL BMP 11/11/23 11/11/23 00:33 08:40 Sodium 139 142 Potassium 3.3 L 3.8 Chloride 103 107 Carbon Dioxide 26 27 BUN 16 12 Creatinine 0.98 0.82 Glucose 154 H 123 H Calcium 9.5 9.2 Liver Function 11/11/23 Range/Units 00:33 Total Bilirubin 0.6 (0.2-1.0) mg/dl AST 12 L (13-39) U/L ALT 9 (7-52) U/L Alkaline Phosphatase 77 (34-104) U/L Albumin 4.1 (3.4-5.0) gm/dl Medications Administered Current Inpatient Medications Acetaminophen (Acetaminophen 500 Mg Tab) 1,000 mg PO Q8 ELÍAS Stop: 12/11/23 21:59 Aspirin (Aspirin 81 Mg Ectab) 81 mg PO BID ELÍAS Stop: 12/11/23 20:59 Atorvastatin Calcium (Atorvastatin 20 Mg Tab) 20 mg PO HS ELÍAS Stop: 12/11/23 20:59 Bisacodyl (Bisacodyl 10 Mg Supp) 10 mg SC DAILY PRN PRN Reason: Constipation Stop: 12/11/23 15:03 Dextrose (Dextrose 50% 50 Ml Syringe) 25 - 50 ml IV UD PRN; Protocol PRN Reason: Hypoglycemia Protocol Stop: 12/11/23 05:21 Diphenhydramine HCl (Diphenhydramine Capsule 25 Mg Cap) 25 mg PO Q8H PRN PRN Reason: Itching Stop: 12/11/23 15:03 Docusate Sodium (Docusate Sodium 100 Mg Cap) 100 mg PO BID ELÍAS Stop: 12/11/23 20:59 Ephedrine Sulfate (Ephedrine Sulfate 50 Mg/Ml Amp) 5 mg IV Q5M PRN PRN Reason: PACU Use Only-SBP<90 mmHg Stop: 11/11/23 19:20 Fentanyl Citrate (Fentanyl Citrate Pf 100 Mcg/2 Ml Vial) 25 mcg IV Q5M PRN PRN Reason: PACU Use Only-Pain Stop: 11/11/23 19:20 Fluoxetine HCl (Fluoxetine Hcl 10 Mg Cap) 10 mg PO [email or web address]@0900 [facility] Stop: 12/12/23 08:59 Fluoxetine HCl (Fluoxetine Hcl 20 Mg Cap) 20 mg PO [email or web address]@0900 [facility] Stop: 12/11/23 10:29 Last Admin: 11/11/23 15:44 Dose: 20 mg Glucagon (Glucagon For Inj 1 Mg Vial) 1 mg SQ UD PRN; Protocol PRN Reason: Hypoglycemia Protocol Stop: 12/11/23 05:21 Glucose (Glucose 40% Gel 15 Gm Tube) 15 - 30 gm PO UD PRN; Protocol PRN Reason: Hypoglycemia Protocol Stop: 12/11/23 05:21 Glucose (Glucose 10 Tab/Tube) 4 - 8 tab PO UD PRN; Protocol PRN Reason: Hypoglycemia Treatment Stop: 12/11/23 05:21 Hydromorphone HCl (Hydromorphone Inj 1 Mg/Ml Syringe) 0.25 mg IV Q5M PRN PRN Reason: PACU Use Only-Pain Stop: 11/11/23 19:20 Hydromorphone HCl (Hydromorphone Inj 1 Mg/Ml Syringe) 1 mg IV Q4H PRN PRN Reason: Pain Stop: 11/25/23 15:03 Cefazolin Sodium (Ancef 2000mg) 2,000 mg in 15 mls @ 3.75 mls/min IV Q8H [facility] Stop: 11/18/23 07:59 Last Admin: 11/11/23 09:13 Dose: 3.75 mls/min Promethazine HCl 6.25 mg/ (Sodium Chloride) 50.25 mls @ 204 mls/hr IV ONCE PRN PRN Reason: PACU Use Only-Nausea/Vomiting Stop: 11/11/23 19:20 Sodium Chloride (Nss) 1,000 mls @ 100 mls/hr IV .Q10H [facility] Stop: 11/12/23 06:00 Last Admin: 11/11/23 15:44 Dose: 100 mls/hr Insulin Aspart (Insulin Aspart Per Unit Charge) 0 units SC [facility] Stop: 12/11/23 16:29 Magnesium Hydroxide (Magnesium Hydroxide Susp 30 Ml Udc) 30 ml PO Q6H PRN PRN Reason: Constipation Stop: 12/11/23 15:03 Metoclopramide HCl (Metoclopramide Hcl Inj 5 Mg/Ml 2 Ml Vial) 10 mg IV Q6H PRN PRN Reason: Nausea And Vomiting Stop: 12/11/23 15:03 Miscellaneous (Carbohydrates For Hypoglycemia ) 15 - 30 gm PO UD PRN PRN Reason: Hypoglycemia Protocol Stop: 12/11/23 05:21 Morphine Sulfate (Morphine Sulfate 4 Mg/Ml 1 Ml Carp\Vial) 3 mg IV Q4H PRN PRN Reason: Severe Pain (Scale 7, 8, 9,10) Stop: 11/25/23 05:21 Multivitamins (Multivitamin Tab) 1 tab PO [facility] Stop: 12/12/23 08:59 Naloxone HCl (Naloxone Hcl 0.4 Mg/1 Ml Vial/Carp) 0.1 mg IV Q5M PRN PRN Reason: Oversedation/Resp Depression Stop: 12/11/23 15:03 Ondansetron HCl (Ondansetron Inj 2 Mg/Ml 2 Ml Vial) 4 mg IV Q6H PRN PRN Reason: Nausea Stop: 12/11/23 05:21 Ondansetron HCl (Ondansetron Inj 2 Mg/Ml 2 Ml Vial) 4 mg IV ONCE PRN PRN Reason: PACU Use Only-Nausea/Vomiting Stop: 11/11/23 19:20 Ondansetron HCl (Ondansetron Inj 2 Mg/Ml 2 Ml Vial) 4 mg IV Q6H PRN PRN Reason: Nausea And Vomiting Stop: 12/11/23 15:03 Pantoprazole Sodium (Pantoprazole 40 Mg Tab) 40 mg PO QAM [facility] Stop: 12/11/23 08:59 Last Admin: 11/11/23 09:12 Dose: 40 mg Polyethylene Glycol (Polyethylene (Miralax) 17 Gm Pack) 17 gm PO DAILY PRN PRN Reason: Constipation Stop: 12/11/23 05:21 Polyethylene Glycol (Polyethylene (Miralax) 17 Gm Pack) 17 gm PO DAILY PRN PRN Reason: constipation Stop: 12/11/23 15:03 Sennosides (Senna 8.6 Mg Tab) 17.2 mg PO HS ELÍAS Stop: 12/11/23 20:59 Tramadol HCl (Tramadol Hcl 50 Mg Tablet) 50 mg PO Q6 PRN PRN Reason: Pain Stop: 12/11/23 05:21 (1) Surgical wound dehiscence Encounter type: initial encounter Qualified Code(s): T81.31XA - Disruption of external operation (surgical) wound, not elsewhere classified, initial encounter
[2023-11-11] MEDS: ACETAMINOPHEN 500 MG TAB PO SCH (17:11)
[2023-11-11] MEDS ORDERED: ceFAZolin 2000MG 2,000 MG/15 ML SYR IV SCH (18:00)
[2023-11-11] MEDS: traMADol HCL 50 MG TABLET PO PRN (19:41)
[2023-11-11] MEDS: DOCUSATE SODIUM 100 MG CAP PO SCH (20:23)
[2023-11-11] MEDS: HYDROmorphone INJ 1 MG/ML SYRINGE IV PRN (20:23)
[2023-11-11] MEDS: SENNA 8.6 MG TAB PO SCH (20:23)
[2023-11-11] MEDS: ASPIRIN 81 MG ECTAB PO SCH (20:24)
[2023-11-11] MEDS: ATORVASTATIN 20 MG TAB PO SCH (20:24)
[2023-11-12 07:07] LABS: Basophils # (auto) 0.03 K/uL (0.00-0.20); Basophils % (auto) 0.3 %; Eosinophils # (auto) 0.17 K/uL (0.00-0.50); Hematocrit (blood only) 34.1 % (37.0-47.0); Hemoglobin 10.9 g/dl (12.0-16.0); Immature Granulocytes # (auto) 0.05 K/uL (0.01-0.20); Immature Granulocytes % (auto) 0.6 %; Lymphocytes # (auto) 0.94 K/uL (1.20-3.40); Lymphocytes % (auto) 10.8 %; Mean Corpuscular Hemoglobin 29.3 pg (25.0-34.0); Mean Corpuscular Volume 91.7 fL (80.0-100.0); Mean Platelet Volume 10.1 fL (9.4-12.4); Monocytes # (auto) 0.58 K/uL (0.11-0.59); Monocytes % (auto) 6.7 %; Neutrophils # (auto) 6.92 K/uL (1.40-6.50); Neutrophils % (auto) 79.6 %; Platelet Count 162 K/uL (130-400); RDW Standard Deviation 47.7 fL (36.4-46.3); Red Blood Count 3.72 M/uL (4.20-5.40); White Blood Count 8.69 K/ul (4.8-10.8)
[2023-11-12] MEDS: ONDANSETRON INJ 2 MG/ML 2 ML VIAL IV PRN (07:17)
[2023-11-12 07:38] LABS: BUN Creatinine Ratio 12.2 (10-20); Calcium 8.9 mg/dl (8.6-10.3); Creatinine Clr Calc Pharmacy 87.1 ml/min; Est GFR (African American) 97.8 ml/min; Est GFR (Non-African American) 84.4 ml/min; Magnesium 1.4 mg/dl (1.7-2.4); Phosphorus 3.4 mg/dl (2.5-4.9); Potassium 3.8 mmol/L (3.5-5.1)
--- NOTE | 2023-11-12 08:46 | Orthopedic Progress Note ---
Date of Service November 12, 2023 Assessment & Plan (1) Surgical wound dehiscence: Plan: POD # s/p Incision and Drainage Poly Exchange-Right Knee, Repair of Quadricep TendonRepair medial lateral retinaculum with change of polyethylene to size 15 constrained DVT proph with BRYCE/SCD/ASA did intra-op cultures, will await final results WBAT with immobilizer, no ROM, likely 4-6 weeks. can loosen in bed for comfort Admission and Anticipated Discharge Date Admission Date: November 11, 2023 Subjective POD #1 s/p Incision and Drainage Poly Exchange-Right Knee, Repair of Quadricep Tendon, Repair medial retinaculum with change of polyethylene to size 15 constrained Review of Systems Constitutional: no fever and no chills Respiratory: no cough and no dyspnea Cardiovascular: no chest pain, no dyspnea and no orthopnea Gastrointestinal: + nausea; no abdominal pain and no vomit ing Physical Exam Physical Exam: Vital Signs Temp Pulse Pulse Pulse Resp BP BP 11/12/23 07:33 11/12/23 04:32 36.6 C 83 16 128/78 11/12/23 00:01 36.9 C 89 16 147/77 H 11/11/23 19:48 36.5 C 86 16 144/77 H 11/11/23 18:09 36.5 C 93 H 16 122/67 11/11/23 17:06 86 16 120/66 11/11/23 16:21 36.5 C 69 17 125/77 11/11/23 15:24 36.5 C 72 16 135/77 11/11/23 15:00 36.5 C 78 18 156/66 H 11/11/23 14:45 71 13 125/54 L 11/11/23 14:35 36.8 C 77 14 124/62 11/11/23 14:25 70 14 125/63 11/11/23 14:15 79 18 127/63 11/11/23 14:05 76 15 131/57 L 11/11/23 13:58 36.2 C L 77 15 130/54 L 11/11/23 11:04 36.8 C 82 18 148/82 H Pulse Ox O2 Del Method 11/12/23 07:33 Room Air 11/12/23 04:32 94 Room Air 11/12/23 00:01 93 Room Air 05/10/24 19:48 94 Room Air 11/11/23 18:09 98 Room Air 11/11/23 17:06 96 Room Air 11/11/23 16:21 96 Room Air 11/11/23 15:24 96 Room Air 11/11/23 15:00 96 Room Air 11/11/23 14:45 94 Room Air 11/11/23 14:35 94 Room Air 11/11/23 14:25 94 Room Air 11/11/23 14:15 96 Room Air 11/11/23 14:05 95 Room Air 11/11/23 13:58 100 Room Air 11/11/23 11:04 98 Room Air Intake and Output 11/11/23 11/12/23 11/12/23 22:59 06:59 14:59 Intake Total 1033.333 / 3033.33 3 933.333 / 3033.333 Balance 1033.333 / 3023.33 3 933.333 / 3023.333 Intake: IV 1033.333 / 2133.33 3 933.333 / 2133.333 Potassium Chlo ride / Wtr 10 meq 33.333 / 200.000 In 100 ml @ 10 0 mls/hr IV Q1H ELÍAS Rx#:[id number] Sodium Chlorid e 0.9% 1,000 ml @ 1000 / 1933.333 933.333 / 1933.333 100 mls/hr IV .Q10H ELÍAS Rx#: [id number] Other: Other Intake Barbara rce Sips Weight 89.045 kg 88.541 kg Weight Measureme nt Method Built in [facility] Built in [facility] Musculoskeletal: Right Knee: leg resting in immobilizer, calf SNT, DP palpable, able to wiggle toes, ankle plantar/dorsiflexion. sensation intact to light touch Results & Data Vital Signs (Past 12 Hours) Vital Signs Temp Pulse Pulse Resp BP BP Pulse Ox 11/12/23 07:33 11/12/23 04:32 36.6 C 83 16 128/78 94 11/12/23 00:01 36.9 C 89 16 147/77 H 93 O2 Del Method 11/12/23 07:33 Room Air 11/12/23 04:32 Room Air 11/12/23 00:01 Room Air Laboratory Results Laboratory Results WBC 8.69 K/ul (4.8-10.8) 11/12/23 06:29 RBC 3.72 M/uL (4.20-5.40) L 11/12/23 06:29 Hgb 10.9 g/dl (12.0-16.0) L 11/12/23 06: Hct 34.1 % (37.0-47.0) L 11/12/23 06:29 MCV 91.7 fL (80.0-100.0) 11/12/23 06: MCH 29.3 pg (25.0-34.0) 11/12/23 06: MCHC 32.0 g/dL (32.0-36.0) 11/12/23 06: RDW Std Deviation 47.7 fL (36.4-46.3) H 11/12/23 06: RDW Coeff of Bettina 14.0 % (11.5-14.5) 11/12/23 06: Plt Count 162 K/uL (130-400) 11/12/23 06: MPV 10.1 fL (9.4-12.4) 11/12/23 06:29 Immature Gran % (Auto) 0.6 % 11/12/23 06: Neut % (Auto) 79.6 % 11/12/23 06: Lymph % (Auto) 10.8 % 11/12/23 06: Camb[place] % (Auto) 6.7 % 11/12/23 06:29 Eos % (Auto) 2.0 % 11/12/23 06: Baso % (Auto) 0.3 % 11/12/23 06:29 Neut # (Auto) 6.92 K/uL (1.40-6.50) H 11/12/23 06:29 Lymph # (Auto) 0.94 K/uL (1.20-3.40) L 11/12/23 06:29 Camb[place] # (Auto) 0.58 K/uL (0.11-0.59) 11/12/23 06:29 Eos # (Auto) 0.17 K/uL (0.00-0.50) 11/12/23 06:29 Baso # (Auto) 0.03 K/uL (0.00-0.20) 11/12/23 06:29 Immature Gran # (Auto) 0.05 K/uL (0.01-0.20) 11/12/23 06:29 Sodium 138 mmol/L (136-145) 11/12/23 06:29 Potassium 3.8 mmol/L (3.5-5.1) 11/12/23 06:29 Chloride 105 mmol/L (98-107) 11/12/23 06:29 Carbon Dioxide 25 mmol/L (21-32) 11/12/23 06:29 Anion Gap 8 (3-11) 11/12/23 06:29 BUN 9 mg/dl (6-23) 11/12/23 06:29 Creatinine 0.74 mg/dl (0.6-1.2) 11/12/23 06:29 Est Cr Clr Drug Dosing 87.1 ml/min 11/12/23 06:29 Est GFR ( Amer) 97.8 ml/min 11/12/23 06:29 Est GFR (Non-Af Amer) 84.4 ml/min 11/12/23 06:29 BUN/Creatinine Ratio 12.2 (10-20) 11/12/23 06:29 Glucose 119 mg/dl (70-99(Fasting)) H 11/12/23 06:29 POC Glucose 121 mg/dl (70-99) H 11/12/23 07:50 Estimat Average Glucose 114 mg/dl 11/11/23 08:40 Hemoglobin A1c 5.6 % (4.5-5.6) 11/11/23 08:40 Calcium 8.9 mg/dl (8.6-10.3) 11/12/23 06:29 Phosphorus 3.4 mg/dl (2.5-4.9) 11/12/23 06:29 Magnesium 1.4 mg/dl (1.7-2.4) L 11/12/23 06:29 Total Bilirubin 0.6 mg/dl (0.2-1.0) 11/11/23 00:33 AST 12 U/L (13-39) L 11/11/23 00:33 ALT 9 U/L (7-52) 11/11/23 00:33 Alkaline Phosphatase 77 U/L (34-104) 11/11/23 00:33 Total Protein 7.1 gm/dl (6.0-8.3) 05/10/24 00:33 Albumin 4.1 gm/dl (3.4-5.0) 11/11/23 00:33 Globulin 3.0 gm/dl (2.5-4.0) 11/11/23 00:33 Albumin/Globulin Ratio 1.4 (0.9-2) 11/11/23 00:33 Nasal Screen MRSA (PCR) Negative (Negative) 11/11/23 06:17 Impressions Knee X-Ray 11/11/23 12:35 XR knee RT 1 or 2V routine CLINICAL HISTORY: Postoperative evaluation. COMPARISON: Right knee radiographs November 11, 2023 at 12:44 AM. FINDINGS: Alignment of the right knee arthroplasty is anatomic. There is no periprosthetic fracture or unexpected radiopaque foreign body. A 2 cm ossific/calcific density projects posterior to the femoral component. There are skin william. There is soft tissue gas. IMPRESSION: 1. Intact total right knee arthroplasty. No periprosthetic fractures. 2. Indeterminate 2 cm calcific/ossific density which projects posterior to the femoral component on lateral projection. ACT 112: Negative or not required by law. Electronically signed by: Gordo Snell M.D. 11/11/2023 3:05 PM (1) Surgical wound dehiscence Encounter type: initial encounter Qualified Code(s): T81.31XA - Disruption of external operation (surgical) wound, not elsewhere classified, initial encounter
[2023-11-12] MEDS: MAGNESIUM SULFATE / D5W 1 GM/100 ML BAG IV SCH (08:59)
[2023-11-12] MEDS: MULTIVITAMIN TAB PO SCH (09:51)
[2023-11-12] MEDS: FLUoxetine HCL 10 MG CAP PO SCH (09:51)
[2023-11-12] MEDS: BACLOFEN 10 MG TAB PO STA (11:20)
[2023-11-12] MEDS: METOCLOPRAMIDE HCL INJ 5 MG/ML 2 ML VIAL IV PRN (12:22)
[2023-11-12] MEDS: ACETAMINOPHEN 1,000 MG/100 ML VIAL IV STA (12:23)
--- NOTE | 2023-11-12 15:08 | Hospitalist Progress Note ---
Date of Service November 12, 2023 Assessment & Plan (1) Surgical wound dehiscence: Plan: 68-year-old female with past medical history significant for anxiety, GERD, CKD stage III, diabetes, hyperlipidemia, history of malignant neoplasm of kidney s/p left nephrectomy no chemo/radiation, osteoarthritis, sleep apnea who had right total knee replacement 6 weeks ago comes because of fall and right knee TKR dehiscence.Patient states she is going to PT and ambulating with a cane. When she was walking around the bed tonight she felt the knee popped up and she fell down on her back and she found her left right knee surgical site opened up. Saw some blood coming out. And had some pain. Came to the ER. Given Ancef and currently the wound is Dressed.. Denies any other complaints. Denies any fevers. No chest pain or shortness of breath. No headache or back pain. No nausea. No sore throat. Appetite is okay. No abdominal pain. Normal bowel and bladder movements. Currently resting comfortably and hemodynamically stable. Surgical wound dehiscence Right TKR dehiscence S/p dressing in the ER Received Ancef which will be continued Appreciate Ortho input and recommendation Status post incision and drainage 6 poly exchange of right knee and repair of quadriceps tendon on right on 11/11/2023 She has been stable following surgery with some pain in the right knee and numbness involving the right leg Management as per Ortho-has been getting physical therapy, pain seems reasonably controlled. Likely discharge tomorrow as per the primary Remains medically stable to be discharged Diabetes Hold home p.o. medications Sliding scale Will monitor Solitary kidney Advised to drink more fluid Continue IV fluid now Kidney function remains unremarkable and electrolytes are normal Sleep apnea CPAP nightly H history of malignant neoplasm of kidney S/p left nephrectomy DVT prophylaxis SCDs on left leg for now Disposition Medical floor Full code Admission and Anticipated Discharge Date Admission Date: November 11, 2023 Subjective 11/11/2023 The patient was seen and examined in medical floor She is a status post incision and drainage was poly exchange right knee and repair of quadriceps tendon Right leg is numb and right knee is bandaged Feeling cold but otherwise no significant symptoms 11/12/2023 The patient was seen and examined in medical floor She has been feeling a lot better today Complains usual pain involving the right knee Denies any other significant symptoms Review of Systems Review of Systems: All systems reviewed and are unremarkable except as noted below Physical Exam Physical Exam: Lying in bed without any acute distress Constitutional: well developed, well nourished and + ill appearing Eyes: PERRL, conjunctivae normal, anicteric sclerae ENMT: external ear and nose normal, oropharynx normal Neck: trachea midline, no thyromegaly Respiratory: no respiratory distress Auscultation: lungs clear to auscultation bilaterally Cardiovascular: Rate/Rhythm: regular rate and regular rhythm; not tachycardic Heart Sounds: normal S1 and normal S2; no murmur Extremities: no edema Gastrointestinal (Abdomen): Inspection/Auscultation: normal bowel sounds; abd omen not distended Percussion/Palpation: abdomen soft; abdomen nontender Musculoskeletal: Right knee pain with movement of the right lower extremity Neurologic: normal touch/pain/proprioception and moves all extremities Lymphatic: no cervical or axillary lymphadenopathy Results & Data Results & Data Vital Signs (Past 12 Hours) Vital Signs Temp Pulse Pulse Resp BP BP Pulse Ox 11/12/23 14:14 36.6 C 93 H 17 135/71 94 11/12/23 07:33 11/12/23 04:32 36.6 C 83 16 128/78 94 O2 Del Method 11/12/23 14:14 Room Air 11/12/23 07:33 Room Air 11/12/23 04:32 Room Air Laboratory Results Short CBC 11/12/23 Range/Units 06:29 WBC 8.69 (4.8-10.8) K/ul Hgb 10.9 L (12.0-16.0) g/dl Hct 34.1 L (37.0-47.0) % Plt Count 162 (130-400) K/uL BMP 11/12/23 06:29 Sodium 138 Potassium 3.8 Chloride 105 Carbon Dioxide 25 BUN 9 Creatinine 0.74 Glucose 119 H Calcium 8.9 Medications Administered Current Inpatient Medications Acetaminophen (Acetaminophen 500 Mg Tab) 1,000 mg PO Q8 ELÍAS Stop: 12/11/23 21:59 Last Admin: 11/12/23 12:58 Dose: Not Given Aspirin (Aspirin 81 Mg Ectab) 81 mg PO BID ELÍAS Stop: 12/11/23 20:59 Last Admin: 11/12/23 09:52 Dose: 81 mg Atorvastatin Calcium (Atorvastatin 20 Mg Tab) 20 mg PO HS ELÍAS Stop: 12/11/23 20:59 Last Admin: 11/11/23 20:24 Dose: 20 mg Bisacodyl (Bisacodyl 10 Mg Supp) 10 mg IN DAILY PRN PRN Reason: Constipation Stop: 12/11/23 15:03 Dextrose (Dextrose 50% 50 Ml Syringe) 25 - 50 ml IV UD PRN; Protocol PRN Reason: Hypoglycemia Protocol Stop: 12/11/23 05:21 Diphenhydramine HCl (Diphenhydramine Capsule 25 Mg Cap) 25 mg PO Q8H PRN PRN Reason: Itching Stop: 12/11/23 15:03 Docusate Sodium (Docusate Sodium 100 Mg Cap) 100 mg PO BID [facility] Stop: 12/11/23 20:59 Last Admin: 11/12/23 08:57 Dose: Not Given Fluoxetine HCl (Fluoxetine Hcl 10 Mg Cap) 10 mg PO [email or web address] [facility] Stop: 12/12/23 08:59 Last Admin: 11/12/23 09:51 Dose: 10 mg Fluoxetine HCl (Fluoxetine Hcl 20 Mg Cap) 20 mg PO [email or web address] [facility] Stop: 12/11/23 10:29 Last Admin: 11/11/23 15:44 Dose: 20 mg Glucagon (Glucagon For Inj 1 Mg Vial) 1 mg SQ UD PRN; Protocol PRN Reason: Hypoglycemia Protocol Stop: 12/11/23 05:21 Glucose (Glucose 40% Gel 15 Gm Tube) 15 - 30 gm PO UD PRN; Protocol PRN Reason: Hypoglycemia Protocol Stop: 12/11/23 05:21 Glucose (Glucose 10 Tab/Tube) 4 - 8 tab PO UD PRN; Protocol PRN Reason: Hypoglycemia Treatment Stop: 12/11/23 05:21 Hydromorphone HCl (Hydromorphone Inj 1 Mg/Ml Syringe) 1 mg IV Q4H PRN PRN Reason: Pain Stop: 11/25/23 15:03 Last Admin: 11/12/23 00:56 Dose: 1 mg Cefazolin Sodium (Ancef 2000mg) 2,000 mg in 15 mls @ 3.75 mls/min IV Q8H [facility] Stop: 11/18/23 07:59 Last Admin: 11/12/23 07:09 Dose: 3.75 mls/min Insulin Aspart (Insulin Aspart Per Unit Charge) 0 units SC ACHS [facility] Stop: 12/11/23 16:29 Last Admin: 11/12/23 12:23 Dose: Not Given Magnesium Hydroxide (Magnesium Hydroxide Susp 30 Ml Udc) 30 ml PO Q6H PRN PRN Reason: Constipation Stop: 12/11/23 15:03 Metoclopramide HCl (Metoclopramide Hcl Inj 5 Mg/Ml 2 Ml Vial) 10 mg IV Q6H PRN PRN Reason: Nausea And Vomiting Stop: 12/11/23 15:03 Last Admin: 11/12/23 12:22 Dose: 10 mg Miscellaneous (Carbohydrates For Hypoglycemia ) 15 - 30 gm PO UD PRN PRN Reason: Hypoglycemia Protocol Stop: 12/11/23 05:21 Morphine Sulfate (Morphine Sulfate 4 Mg/Ml 1 Ml Carp\Vial) 3 mg IV Q4H PRN PRN Reason: Severe Pain (Scale 7, 8, 9,10) Stop: 11/25/23 05:21 Multivitamins (Multivitamin Tab) 1 tab PO QAM [facility] Stop: 12/12/23 08:59 Last Admin: 11/12/23 09:51 Dose: 1 tab Naloxone HCl (Naloxone Hcl 0.4 Mg/1 Ml Vial/Carp) 0.1 mg IV Q5M PRN PRN Reason: Oversedation/Resp Depression Stop: 12/11/23 15:03 Ondansetron HCl (Ondansetron Inj 2 Mg/Ml 2 Ml Vial) 4 mg IV Q6H PRN PRN Reason: Nausea Stop: 12/11/23 05:21 Last Admin: 11/12/23 07:17 Dose: 4 mg Ondansetron HCl (Ondansetron Inj 2 Mg/Ml 2 Ml Vial) 4 mg IV Q6H PRN PRN Reason: Nausea And Vomiting Stop: 12/11/23 15:03 Pantoprazole Sodium (Pantoprazole 40 Mg Tab) 40 mg PO QAM ELÍAS Stop: 12/11/23 08:59 Last Admin: 11/12/23 09:51 Dose: 40 mg Polyethylene Glycol (Polyethylene (Miralax) 17 Gm Pack) 17 gm PO DAILY PRN PRN Reason: Constipation Stop: 12/11/23 05:21 Polyethylene Glycol (Polyethylene (Miralax) 17 Gm Pack) 17 gm PO DAILY PRN PRN Reason: constipation Stop: 12/11/23 15:03 Sennosides (Senna 8.6 Mg Tab) 17.2 mg PO HS ELÍAS Stop: 12/11/23 20:59 Last Admin: 11/11/23 20:23 Dose: 17.2 mg Tramadol HCl (Tramadol Hcl 50 Mg Tablet) 50 mg PO Q6 PRN PRN Reason: Pain Stop: 12/11/23 05:21 Last Admin: 11/12/23 13:53 Dose: 50 mg (1) Surgical wound dehiscence Encounter type: initial encounter Qualified Code(s): T81.31XA - Disruption of external operation (surgical) wound, not elsewhere classified, initial encounter
[2023-11-13 06:23] LABS: Basophils # (auto) 0.04 K/uL (0.00-0.20); Basophils % (auto) 0.5 %; Eosinophils # (auto) 0.33 K/uL (0.00-0.50); Eosinophils % (auto) 3.9 %; Hematocrit (blood only) 35.1 % (37.0-47.0); Hemoglobin 11.3 g/dl (12.0-16.0); Immature Granulocytes # (auto) 0.07 K/uL (0.01-0.20); Immature Granulocytes % (auto) 0.8 %; Lymphocytes # (auto) 1.43 K/uL (1.20-3.40); Lymphocytes % (auto) 16.7 %; Mean Corpuscular Hgb Conc 32.2 g/dL (32.0-36.0); Mean Corpuscular Volume 90.2 fL (80.0-100.0); Monocytes # (auto) 0.68 K/uL (0.11-0.59); Monocytes % (auto) 7.9 %; Neutrophils # (auto) 6.02 K/uL (1.40-6.50); Neutrophils % (auto) 70.2 %; Platelet Count 194 K/uL (130-400); RDW Coefficient of Variation 13.9 % (11.5-14.5); RDW Standard Deviation 45.8 fL (36.4-46.3); Red Blood Count 3.89 M/uL (4.20-5.40); White Blood Count 8.57 K/ul (4.8-10.8)
[2023-11-13 06:36] LABS: BUN Creatinine Ratio 11.5 (10-20); Creatinine Clr Calc Pharmacy 82.4 ml/min; Est GFR (African American) 91.8 ml/min; Est GFR (Non-African American) 79.2 ml/min; Potassium 3.4 mmol/L (3.5-5.1)
--- NOTE | 2023-11-13 08:12 | Orthopedic Progress Note ---
Date of Service November 13, 2023 Assessment & Plan (1) Surgical wound dehiscence: Plan: POD # 2 s/p Incision and Drainage Poly Exchange-Right Knee, Repair of Quadricep TendonRepair medial lateral retinaculum with change of polyethylene to size 15 constrained DVT proph with BRYCE/SCD/ASA WBAT with immobilizer, no ROM, likely 4-6 weeks. can loosen in bed for comfort stable for discharge today, will f/u with Dr Keith team in 2 weeks Admission and Anticipated Discharge Date Admission Date: November 11, 2023 Subjective POD #2 s/p Incision and Drainage Poly Exchange-Right Knee, Repair of Quadricep Tendon, Repair medial retinaculum with change of polyethylene to size 15 constrained Review of Systems Constitutional: no fever and no chills Respiratory: no cough and no dyspnea Cardiovascular: no chest pain, no dyspnea and no orthopnea Gastrointestinal: no abdominal pain, no nausea and no vomiting Physical Exam Physical Exam: Vital Signs Temp Pulse Pulse Resp BP BP Pulse Ox 11/13/23 07:37 36.8 C 94 H 17 129/73 95 11/12/23 19:34 37.2 C 113 H 16 146/76 H 96 11/12/23 14:14 36.6 C 93 H 17 135/71 94 O2 Del Method 11/13/23 07:37 Room Air 11/12/23 19:34 Room Air 11/12/23 14:14 Room Air Intake and Output 11/12/23 11/13/23 11/13/23 22:59 06:59 14:59 Other: Weight 87.997 kg Weight Measureme nt Method Built in [facility] Musculoskeletal: Right Knee: leg resting in immobilizer, calf SNT, DP palpable, able to wiggle toes, ankle plantar/dorsiflexion. sensation intact to light touch Results & Data Vital Signs (Past 12 Hours) Vital Signs Temp Pulse Resp BP Pulse Ox O2 Del Method 11/13/23 07:37 36.8 C 94 H 17 129/73 95 Room Air Laboratory Results Laboratory Results WBC 8.57 K/ul (4.8-10.8) 11/13/23 05:57 RBC 3.89 M/uL (4.20-5.40) L 11/13/23 05:57 Hgb 11.3 g/dl (12.0-16.0) L 11/13/23 05:57 Hct 35.1 % (37.0-47.0) L 11/13/23 05:57 MCV 90.2 fL (80.0-100.0) 11/13/23 05:57 MCH 29.0 pg (25.0-34.0) 11/13/23 05:57 MCHC 32.2 g/dL (32.0-36.0) 11/13/23 05:57 RDW Std Deviation 45.8 fL (36.4-46.3) 11/13/23 05:57 RDW Coeff of Bettina 13.9 % (11.5-14.5) 11/13/23 05:57 Plt Count 194 K/uL (130-400) 11/13/23 05:57 MPV 10.0 fL (9.4-12.4) 11/13/23 05:57 Immature Gran % (Auto) 0.8 % 11/13/23 05:57 Neut % (Auto) 70.2 % 11/13/23 05:57 Lymph % (Auto) 16.7 % 11/13/23 05:57 Kerr % (Auto) 7.9 % 11/13/23 05:57 Eos % (Auto) 3.9 % 11/13/23 05:57 Baso % (Auto) 0.5 % 11/13/23 05:57 Neut # (Auto) 6.02 K/uL (1.40-6.50) 11/13/23 05:57 Lymph # (Auto) 1.43 K/uL (1.20-3.40) 11/13/23 05:57 Kerr # (Auto) 0.68 K/uL (0.11-0.59) H 11/13/23 05:57 Eos # (Auto) 0.33 K/uL (0.00-0.50) 11/13/23 05:57 Baso # (Auto) 0.04 K/uL (0.00-0.20) 11/13/23 05:57 Immature Gran # (Auto) 0.07 K/uL (0.01-0.20) 11/13/23 05:57 Sodium 138 mmol/L (136-145) 11/13/23 05:57 Potassium 3.4 mmol/L (3.5-5.1) L 11/13/23 05:57 Chloride 103 mmol/L (98-107) 11/13/23 05:57 Carbon Dioxide 25 mmol/L (21-32) 11/13/23 05:57 Anion Gap 10 (3-11) 11/13/23 05:57 BUN 9 mg/dl (6-23) 11/13/23 05:57 Creatinine 0.78 mg/dl (0.6-1.2) 11/13/23 05:57 Est Cr Clr Drug Dosing 82.4 ml/min 11/13/23 05:57 Est GFR ( Amer) 91.8 ml/min 11/13/23 05:57 Est GFR (Non-Af Amer) 79.2 ml/min 11/13/23 05:57 BUN/Creatinine Ratio 11.5 (10-20) 11/13/23 05:57 Glucose 85 mg/dl (70-99(Fasting)) 11/13/23 05:57 POC Glucose 81 mg/dl (70-99) 11/13/23 07:40 Estimat Average Glucose 114 mg/dl 11/11/23 08:40 Hemoglobin A1c 5.6 % (4.5-5.6) 11/11/23 08:40 Calcium 9.0 mg/dl (8.6-10.3) 11/13/23 05:57 Phosphorus 3.4 mg/dl (2.5-4.9) 11/12/23 06:29 Magnesium 1.4 mg/dl (1.7-2.4) L 11/12/23 06:29 Total Bilirubin 0.6 mg/dl (0.2-1.0) 11/11/23 00:33 AST 12 U/L (13-39) L 11/11/23 00:33 ALT 9 U/L (7-52) 11/11/23 00:33 Alkaline Phosphatase 77 U/L (34-104) 11/11/23 00:33 Total Protein 7.1 gm/dl (6.0-8.3) 11/11/23 00:33 Albumin 4.1 gm/dl (3.4-5.0) 11/11/23 00:33 Globulin 3.0 gm/dl (2.5-4.0) 11/11/23 00:33 Albumin/Globulin Ratio 1.4 (0.9-2) 11/11/23 00:33 Nasal Screen MRSA (PCR) Negative (Negative) 11/11/23 06:17 Impressions Knee X-Ray 11/11/23 12:35 XR knee RT 1 or 2V routine CLINICAL HISTORY: Postoperative evaluation. COMPARISON: Right knee radiographs November 11, 2023 at 12:44 AM. FINDINGS: Alignment of the right knee arthroplasty is anatomic. There is no periprosthetic fracture or unexpected radiopaque foreign body. A 2 cm ossific/calcific density projects posterior to the femoral component. There are skin william. There is soft tissue gas. IMPRESSION: 1. Intact total right knee arthroplasty. No periprosthetic fractures. 2. Indeterminate 2 cm calcific/ossific density which projects posterior to the femoral component on lateral projection. ACT 112: Negative or not required by law. Electronically signed by: Gordo Snell M.D. 11/11/2023 3:05 PM (1) Surgical wound dehiscence Encounter type: initial encounter Qualified Code(s): T81.31XA - Disruption of external operation (surgical) wound, not elsewhere classified, initial encounter
[2023-11-13] MEDS: POTASSIUM CHLORIDE CRTAB 20 MEQ TABCR PO STA (08:21)
--- NOTE | 2023-11-13 11:31 | Hospitalist Progress Note ---
Date of Service November 13, 2023 Assessment & Plan (1) Surgical wound dehiscence: Plan: 68-year-old female with past medical history significant for anxiety, GERD, CKD stage III, diabetes, hyperlipidemia, history of malignant neoplasm of kidney s/p left nephrectomy no chemo/radiation, osteoarthritis, sleep apnea who had right total knee replacement 6 weeks ago comes because of fall and right knee TKR dehiscence.Patient states she is going to PT and ambulating with a cane. When she was walking around the bed tonight she felt the knee popped up and she fell down on her back and she found her left right knee surgical site opened up. Saw some blood coming out. And had some pain. Came to the ER. Given Ancef and currently the wound is Dressed.. Denies any other complaints. Denies any fevers. No chest pain or shortness of breath. No headache or back pain. No nausea. No sore throat. Appetite is okay. No abdominal pain. Normal bowel and bladder movements. Currently resting comfortably and hemodynamically stable. Surgical wound dehiscence Right TKR dehiscence S/p dressing in the ER Received Ancef which will be continued Appreciate Ortho input and recommendation Status post incision and drainage 6 poly exchange of right knee and repair of quadriceps tendon on right on 11/11/2023 She has been stable following surgery with some pain in the right knee and numbness involving the right leg Management as per Ortho-has been getting physical therapy, pain seems reasonably controlled. Likely discharge tomorrow as per the primary Remains medically stable to be discharged Denies any significant symptoms Remains medically stable to be discharged Labs were unremarkable and remains hemodynamically stable Diabetes Hold home p.o. medications Sliding scale Will monitor Solitary kidney Advised to drink more fluid Continue IV fluid now Kidney function remains unremarkable and electrolytes are normal Sleep apnea CPAP nightly H history of malignant neoplasm of kidney S/p left nephrectomy DVT prophylaxis SCDs on left leg for now Disposition Medical floor Full code Admission and Anticipated Discharge Date Admission Date: November 11, 2023 Subjective 11/11/2023 The patient was seen and examined in medical floor She is a status post incision and drainage was poly exchange right knee and repair of quadriceps tendon Right leg is numb and right knee is bandaged Feeling cold but otherwise no significant symptoms 11/12/2023 The patient was seen and examined in medical floor She has been feeling a lot better today Complains usual pain involving the right knee Denies any other significant symptoms 11/13/2023 patient was seen and examined in medical floor she has been stable and will be discharged home this morning denies any significant symptoms Review of Systems Review of Systems: All systems reviewed and are unremarkable except as noted below Physical Exam Physical Exam: Lying in bed without any acute distress Constitutional: well developed, well nourished and + ill appearing Eyes: PERRL, conjunctivae normal, anicteric sclerae ENMT: external ear and nose normal, oropharynx normal Neck: trachea midline, no thyromegaly Respiratory: no respiratory distress Auscultation: lungs clear to auscultation bilaterally Cardiovascular: Rate/Rhythm: regular rate and regular rhythm; not tachycardic Heart Sounds: normal S1 and normal S2; no murmur Extremities: no edema Gastrointestinal (Abdomen): Inspection/Auscultation: normal bowel sounds; abdomen not distended Percussion/Palpation: abdomen soft; abdomen nontender Neurologic: normal touch/pain/proprioception and moves all extremities Lymphatic: no cervical or axillary lymphadenopathy Results & Data Results & Data Vital Signs (Past 12 Hours) Vital Signs Temp Pulse Resp BP Pulse Ox O2 Del Method 11/13/23 07:37 36.8 C 94 H 17 129/73 95 Room Air Laboratory Results Short CBC 11/13/23 Range/Units 05:57 WBC 8.57 (4.8-10.8) K/ul Hgb 11.3 L (12.0-16.0) g/dl Hct 35.1 L (37.0-47.0) % Plt Count 194 (130-400) K/uL BMP 11/13/23 05:57 Sodium 138 Potassium 3.4 L Chloride 103 Carbon Dioxide 25 BUN 9 Creatinine 0.78 Glucose 85 Calcium 9.0 (1) Surgical wound dehiscence Encounter type: initial encounter Qualified Code(s): T81.31XA - Disruption of external operation (surgical) wound, not elsewhere classified, initial encounter
--- NOTE | 2023-11-14 09:02 | Discharge Summary ---
Date of Service November 13, 2023 Admission HPI Per Admitting Provider 68-year-old female with past medical history significant for anxiety, GERD, CKD stage III, diabetes, hyperlipidemia, history of malignant neoplasm of kidney s/p left nephrectomy no chemo/radiation, osteoarthritis, sleep apnea who had right total knee replacement 6 weeks ago comes because of fall and right knee TKR dehiscence.Patient states she is going to PT and ambulating with a cane. When she was walking around the bed tonight she felt the knee popped up and she fell down on her back and she found her left right knee surgical site opened up. Saw some blood coming out. And had some pain. Came to the ER. Given Ancef and currently the wound is Dressed.. Denies any other complaints. Denies any fevers. No chest pain or shortness of breath. No headache or back pain. No nausea. No sore throat. Appetite is okay. No abdominal pain. Normal bowel and bladder movements. Currently resting comfortably and hemodynamically stable. Past medical history. As mentioned above. Past surgical history. Right rotator cuff surgery. Appendectomy bilateral carpal tunnel surgery. . History of colonoscopy and EGD. Left cataract surgery. History of left nephrectomy. Right cataract surgery. Ton sillectomy. Tooth extraction. Tubal ligation. Colposcopy with cervical biopsy. History of laparoscopy diagnostic gynecologic with biopsy. Family history. Mother had colorectal cancer. Family history significant for stomach ulcer and diabetes. Social history. Former smoking. Quit 5 years ago. No alcohol use. No drug use. Admission Exam Per Admitting Provider Physical Exam: General- Not in distress Head- atraumatic Eyes- PERRL. ENT- oropharynx clear Neck- supple, no JVD. Lungs- clear to auscultation no wheezing or crackles. Heart- regular rhythm; no murmur, no gallop. Abdomen- normal bowel sounds, soft, nontender, no distension. Extremities- right knee in dressing. Neuro- alert, oriented EMIL,No Dysarthria, No facial palsy, Moves extremities. Principal Diagnosis right knee poly exchange, quad tendon repair Discharge Exam Lying in bed without any acute distress Constitutional well developed, well nourished and + ill appearing Eyes PERRL, conjunctivae normal, anicteric sclerae ENMT external ear and nose normal, oropharynx normal Neck trachea midline, no thyromegaly Respiratory no respiratory distress Auscultation: lungs clear to auscultation bilaterally Cardiovascular Rate/Rhythm: regular rate and regular rhythm; not tachycardic Heart Sounds: normal S1 and normal S2; no murmur Extremities: no edema Gastrointestinal (Abdomen) Inspection/Auscultation: normal bowel sounds; abdomen not distended Percussion/Palpation: abdomen soft; abdomen nontender Neurologic normal touch/pain/proprioception and moves all extremities Lymphatic no cervical or axillary lymphadenopathy Discharge Data Allergies Allergy/AdvReac Type Severity Reaction Status Date / Time naproxen Allergy Intermediate Hives Verified 09/28/23 07:54 codeine AdvReac Mild N/V Verified 09/28/23 07:54 ketorolac [From Toradol] AdvReac Nausea Verified 09/28/23 07:54 Consultations 11/11/23 01:43 ED Decision to Admit Stat 11/11/23 08:00 Consult Orthopedic Surgery Routine Procedures Performed Operation Date: 11/11/23 08:40 Actual Procedures p Incision and Drainage Poly Exchange-Right Knee,(Right) - Duong Borja DO s Repair of Quadricep Tendon Right(Right) - Duong Borja DO Ordered Studies 11/11/23 11:20 US - OR guided needle placemen Routine Hospital Course (1) Surgical wound dehiscence: 68-year-old female with past medical history significant for anxiety, GERD, CKD stage III, diabetes, hyperlipidemia, history of malignant neoplasm of kidney s/p left nephrectomy no chemo/radiation, osteoarthritis, sleep apnea who had right total knee replacement 6 weeks ago comes because of fall and right knee TKR dehiscence.Patient states she is going to PT and ambulating with a cane. When she was walking around the bed tonight she felt the knee popped up and she fell down on her back and she found her left right knee surgical site opened up. Saw some blood coming out. And had some pain. Came to the ER. Given Ancef and currently the wound is Dressed.. Denies any other complaints. Denies any fevers. No chest pain or shortness of breath. No headache or back pain. No nausea. No sore throat. Appetite is okay. No abdominal pain. Normal bowel and bladder movements. Currently resting comfortably and hemodynamically stable. Surgical wound dehiscence Right TKR dehiscence S/p dressing in the ER Received Ancef which will be continued Appreciate Ortho input and recommendation Status post incision and drainage 6 poly exchange of right knee and repair of quadriceps tendon on right on 11/11/2023 She has been stable following surgery with some pain in the right knee and numbness involving the right leg Management as per Ortho-has been getting physical therapy, pain seems reasonably controlled. Likely discharge tomorrow as per the primary Remains medically stable to be discharged Denies any significant symptoms Remains medically stable to be discharged Labs were unremarkable and remains hemodynamically stable Diabetes Hold home p.o. medications Sliding scale Will monitor Solitary kidney Advised to drink more fluid Continue IV fluid now Kidney function remains unremarkable and electrolytes are normal Sleep apnea CPAP nightly H history of malignant neoplasm of kidney S/p left nephrectomy DVT prophylaxis SCDs on left leg for now Disposition Medical floor Full code Total Time Total Time Spent Total Time Spent (In Minutes): 35 minutes Discharge Plan Discharge Items Patient Disposition: Home - Home Health Services Reason For Visit: RIGHT KNEE WOUND Discharge Diagnosis: right knee poly exchange, quad tendon repair Activity: Per Instructions section Weightbearing Comment: WBAT with immobilizer on Non-emergency contact: Surgeon Call non-emergency contact if: you have any medication questions, your pain is concerning for you, your temperature is above 101, your wound has increased redness, your wound has increased drainage and your wound pain has increased Follow-up/Referrals: Ezequiel Castelan [Primary Care Provider] - Diet: Regular Addtl Attending Provider Instructions: ACTIVITY RECOMMENDATIONS: SELF CARE INSTRUCTIONS A. You should remain in the immobilizer at all times until your first follow up in 2 weeks. You can loosen for comfort when not ambulating. B. You may progress at your own pace from walking with a walker or crutches to a cane; then to no assistive devices. C. Make walking a part of your daily routine. Be up as much as comfortable with rest periods throughout the day. Rest with leg elevation is very important. Use the ice wrap frequently for the first 3-4 weeks. D. There are no restrictions on activities. You may ride in a car, shop, participate in plant electrical engineer and all social activities. E. Wear the long elastic stockings (BRYCE hose) 20 hours a day for 2 weeks after surgery. SPECIAL CARE INSTRUCTIONS: VERY IMPORTANT TO READ AND REVIEW A. There are a few signs you need to watch for after you are home. Call [facility] if you notice any of the followin. Increased severe knee pain. Some pain is expected especially when you exercise. 2. Increased swelling in your leg or knee; pain or swelling of the calf muscle in either lower leg. 3. Any fluid drainage from the incision. 4. Shortness of breath or chest pain. B. Please call [facility] at if you have any concerns or questions about your operation or recovery. The doctor or his nurse will return your call promptly. C. You must take antibiotics before dental work, bladder, bowel or other surgery. Your doctor will provide you with a permanent care to carry describing this precaution. IMPORTANT: * REMEMBER TO TAKE ASPIRIN, 81 MG, TWICE DAILY FOR 4 WEEKS UNLESS OTHERWISE DIRECTED. THIS IS YOUR BLOOD THINNER. * HIGH RISK PATIENTS MAY BE PRESCRIBED A STRONGER BLOOD THINNER. THIS WILL BE PROVIDED AT DISCHARGE. * CALL IF INCREASED PAIN, REDNESS, DRAINAGE OR FEVER GREATER THAT 101. * WEAR BRYCE HOSE 20 HOURS PER DAY FOR 2 WEEKS. JACOB Dressing- This is a large suction dressing covering your incision. This will help pull any excess drainage from the wound and allow your incision to heal properly. You may shower with this if you can keep the unit outside of the shower. If any bleeding or leakage is noted please call your doctor's office. This will remain on your incision for 7 days and then should be removed. This can be done yourself or by the home nursing staff if applicable. The entire unit is disposable once removed. Once removed, keep incision clean and dry. If redness or drainage is noted, please call your surgeon. IF INCISION IS LEAKING THROUGH DRESSING, CALL THE OFFICE . FOLLOW UP VISIT: If appointment is not already scheduled: Please call [facility] to make a follow-up appointment for 2 weeks after your surgery at . Pending Studies at Discharge: No Stand-Alone Forms: My [employer], Smoking Cessation Medications and DC Order Prescriptions: New acetaminophen 500 mg tablet 1,000 mg PO Q8 21 Days Qty: 126 0RF aspirin 81 mg tablet,delayed release (DR/EC) 81 mg PO BID 30 Days Qty: 60 0RF tramadol 50 mg tablet 50 - 100 mg PO Q6H PRN (Reason: pain) Qty: 18 0RF Rx Instructions: initial therapy, supervising dr melissa borja. max 5 tabs in 24 hours cefadroxil 500 mg capsule 500 mg PO BID 14 Days Qty: 28 0RF Continued fluoxetine 10 mg tablet 10 mg PO QAM Rx Instructions: Tuesday, , Tuesday, and Tuesday atorvastatin 20 mg Tablet 20 mg PO HS pantoprazole 20 mg Tablet,Delayed Release (Dr/Ec) 20 mg PO QAM Glyxambi 25-5 mg Tablet 1 tab PO QAM fluoxetine 20 mg tablet 20 mg PO QAM Rx Instructions: Tuesday, Tuesday, Tuesday pioglitazone [Actos] 15 mg Tablet 15 mg PO QAM polyethylene glycol 3350 [Miralax] 17 gram powder in packet 17 g PO DAILY PRN (Reason: constipation) Qty: 5 0RF tramadol 50 mg tablet 50 mg PO Q6 PRN (Reason: Pain) gabapentin 100 mg capsule 100 mg PO UD Rx Instructions: take 100 mg at supper and at bedtime Discharge Orders: Discharge Order (Routine); Ordered 11/13/23 Ordered By: Best Guerra/Other Patient Handouts: Tramadol Oral Tablet, Cefadroxil Oral Capsule, Nutrition for Wound Healing, Managing Type 2 Diabetes Admission Data Admit Date/Time: 11/11/23 03:34 Attending Provider: Theresa Starr Admit Provider: Bob Bucio Primary Care Provider: Ezequiel Castelan Other Providers: Bob Bucio; Mak Keith Other Interventions: Discharge Summary Assessment (RN) Last Done: 11/13/23 09:45
== END 2023-11-13 11:27 | disposition home health service (06) | DRG 908 ==
LOC: ED 00:24 → 3N 03:34
DX: Z90.5 Acquired absence of kidney; Z88.5 Allergy status to narcotic agent; Z96.651 Presence of right artificial knee joint; E11.22 Type 2 diabetes mellitus with diabetic chronic kidney disease; N18.30 Chronic kidney disease, stage 3 unspecified; K21.9 Gastro-esophageal reflux disease without esophagitis; Z88.6 Allergy status to analgesic agent; E78.00 Pure hypercholesterolemia, unspecified; Z85.528 Personal history of other malignant neoplasm of kidney; Z79.84 Long term (current) use of oral hypoglycemic drugs; Y83.1 Surgical operation with implant of artificial internal device as the cause of abnormal reaction of the patient, or of later complication, without mention of misadventure at the time of the procedure; Z87.891 Personal history of nicotine dependence; T81.31XA Disruption of external operation (surgical) wound, not elsewhere classified, initial encounter; S76.121A Laceration of right quadriceps muscle, fascia and tendon, initial encounter; M19.90 Unspecified osteoarthritis, unspecified site; G47.30 Sleep apnea, unspecified; Z92.3 Personal history of irradiation